=== PATIENT | female | born 1955 | race Caucasian/White ===

== ENCOUNTER 2019-05-31 20:37 | Emergency (ER) | payer OTHER, SELFPAY ==
[2019-05-31 20:48] VITALS: BP 157/111; PULSE 108; RESP 24; O2SAT 97; BMI 41.4
--- NOTE | 2019-05-31 20:57 | PC.NURSE ---
Discussed pt with Dr. Gaspar, he is aware of pt being in 10/10 pain, waiting for him to see pt. No orders at this time.
--- NOTE | 2019-05-31 21:05 | ED_ITS ---
HPI - Abdominal Pain General Chief Complaint: Abdominal Pain Stated Complaint: REALLY BAD HEMORRHOIDS BAD PAIN Time Seen by Provider: 05/31/19 20:44 Source: patient Mode of arrival: ambulatory History of Present Illness HPI narrative: 64-year-old female who is here for rectal pain. Patient has been seen in the past for hemorrhoids. She has an appointment scheduled next Monday with the surgery Clinic to have them evaluated. She states she has had rectal pain for the past 3 weeks. Is on a stool softener. States she is having diarrhea. No vomiting. No urinary symptoms. Related Data Home Medications Medication Instructions Recorded Confirmed magnesium hydroxide [Milk Of 30 ml PO HS #0 05/04/16 Magnesia Concentrated] Previous Rx's Medication Instructions Recorded aspirin 81 mg PO BID #90 05/20/16 hydroxyzine pamoate 25 mg PO Q4HP PRN #60 cap 05/20/16 oxycodone 5 mg PO Q4HP PRN #60 tab 05/20/16 nitroglycerin 1 inch TX BID PRN #30 gram 05/31/19 Allergies Allergy/AdvReac Type Severity Reaction Status Date / Time No Known Drug Allergies Allergy Verified 05/31/19 20:51 Review of Systems Constitutional Denies fever(s) Cardiovascular Denies chest pain and Denies dyspnea Respiratory Denies dyspnea Gastrointestinal Gastrointestinal: Denies abdominal pain, Denies melena, Denies hematochezia, Denies constipation, Denies cramping, Reports loose stools, Denies nausea and Denies vomiting Comments: Hemorrhoid pain Musculoskeletal Denies back pain and Denies arthralgias Integumentary/Breasts Denies lesions and Denies rash Hematologic/Lymphatic Denies easy bleeding and Denies easy bruising [facility] Medical History Patient denies medical problems (Acute) Social History Smoking Status: Never smoker Social History Smoking Status: Never smoker Exam Initial Vital Signs Initial Vital Signs: Vital Signs Pulse Rate 108 H 05/31/19 20:48 Respiratory Rate 24 05/31/19 20:48 Blood Pressure 157/111 H 05/31/19 20:48 Pulse Oximetry 97 05/31/19 20:48 Const General: cooperative, No comfortable (Comfortable), well developed and well groomed Orientation: alert and awake HENMT Head: normal to inspection and normocephalic Resp Effort & Inspection: normal respiratory effort GI Inspection: non-distended Palpation: No firm Other: Patient with multiple nonthrombosed external hemorrhoids. Difficult to do an internal exam secondary to the patient's extreme discomfort however no internal hemorrhoids felt. No gross blood. Skin Lesions: no lesions Rashes: no rashes Neuro General: alert and awake Cognition: normal cognition Speech: speech normal Extrem General: normal to inspection and capillary refill normal Course Orders Ordered: ED Orders 05/31/19 21:07 CT pelvis w con Stat 05/31/19 21:30 Basic Metabolic Panel Stat Complete Blood Count AUTO DIFF Stat Discontinued Medications Hydromorphone HCl (Dilaudid) 1 mg IV NOW ONE Stop: 05/31/19 21:08 Last Admin: 05/31/19 21:35 Dose: 1 mg Sodium Chloride (Normal Saline 0.9%) 1,000 mls @ 1,000 mls/hr IV BOLUS ONE Stop: 05/31/19 22:06 Last Infusion: 05/31/19 23:01 Dose: 0 mls/hr Admin: 05/31/19 21:35 Dose: 1,000 mls/hr Vital Signs - 8 hr 05/31/19 20:48 05/31/19 21:52 05/31/19 22:54 Pulse Rate 108 H 93 H 78 Respiratory Rate 24 18 Blood Pressure 157/111 H Blood Pressure [Left Arm] 124/66 132/62 Pulse Oximetry 97 98 98 MDM - Abdominal Pain Lab Data Attestation: I reviewed the patient's lab results. Result diagrams: 05/31/19 21:30 05/31/19 21:30 Lab Results 05/31/19 05/31/19 Range/Units 21:30 21:30 WBC 9.0 (4.5-11.0) X10^3/uL RBC 5.04 (4.0-5.2) X10^6/uL Hgb 16.2 H (12.0-16.0) g/dL Hct 46.1 H (36-46) % MCV 91.5 (80-100) fL MCH 32.1 (26-34) PG MCHC 35.1 (30-36) % RDW 12.7 (11.6-14.8) % Plt Count 179 (150-400) X10^3/uL Neut % (Auto) 59.4 (50-75) % Lymph % (Auto) 30.3 (25-40) % [place] % (Auto) 8.6 (3-14) % Eos % (Auto) 0.9 L (2-4) % Baso % (Auto) 0.8 (0-2) % Neut # (Auto) 5300 (1225-9781) /uL Lymph # (Auto) 2700 (3437-5831) /uL [place] # (Auto) 800 (0-900) /uL Eos # (Auto) 100 (0-450) /uL Baso # (Auto) 100 (0-100) /uL Sodium 143 (137-145) mmol/L Potassium 4.2 (3.4-5.1) mmol/L Chloride 105 (98-107) mmol/L Carbon Dioxide 29 (22-32) mmol/L BUN 17 (7-17) mg/dL Creatinine 0.80 (0.52-1.04) mg/dL Estimated GFR > 60.0 (>60) mL/min BUN/Creatinine Ratio 21.3 (6-22) Glucose 94 (80-110) mg/dL Calcium 10.7 H (8.4-10.2) mg/dL Imaging Data CT pelvis: Radiologist's impression: No acute pathology Read by [facility] MDM Narrative Medical decision making narrative: Patient does have multiple external h emorrhoids however none of them were thrombosed. CT scan of the pelvis shows no deep pathology. This was ordered given the severity of the symptoms she was having. She is given pain medication was seems to improve her symptoms quite a bit. She has a follow-up with General Surgery the middle next week. I do not feel the need for a emergent surgical consultation from the emergency department. Will send home with nitroglycerin ointment. Discussed with the patient this could potentially cause her headache we also discussed that this could potentially cause a decrease in blood pressure. Will continue to have her follow up next week. She was given return precautions. She expressed unders tanding and agreement plan. Discharge Plan Departure Patient Disposition: Home Clinical Impression: Rectal pain Hemorrhoids Qualifiers: Hemorrhoid type: unspecified Qualified Code(s): K64.9 - Unspecified hemorrhoids Discharge Date/Time: 05/31/19 23:00 Interventions: ED Discharge Assessment Last Done: 05/31/19 23:00 Instructions: Hemorrhoids (Alternative Therapy), Hemorrhoids Activity Restrictions/Additional Instructions: Keep all of your scheduled medical appointments. Use the cream like we discussed. Return to the emergency department for any new or worsening symptoms Prescriptions: New nitroglycerin 0.4 % (w/w) ointment 1 inch TX BID PRN (Reason: rectal discomfort) Qty: 30 RF: 0 No Action magnesium hydroxide [Milk Of Magnesia Concentrated] 2,400 MG/10 ML suspension 30 ml PO HS Qty: 0 RF: 0 aspirin 81 MG tablet,delayed release (DR/EC) 81 mg PO BID Qty: 90 RF: 1 oxycodone 5 MG tablet 5 mg PO Q4HP PRNQty: 60 RF: 0 hydroxyzine pamoate 25 MG capsule 25 mg PO Q4HP PRNQty: 60 RF: 1 Referrals: Mery Sanchez MD [Primary Care Provider] -
--- NOTE | 2019-05-31 21:07 | DI.CT.S_ITS ---
PROCEDURE: CT PELVIS W CON INDICATIONS: Perirectal pain eval for abscess TECHNIQUE: After the administration of oral contrast and intravenous contrast, 5 mm thick sections acquired from the iliac crests to the symphysis. 5 mm thick coronal and sagittal reformats were acquired. For radiation dose reduction, the following was used: automated exposure control, adjustment of mA and/or kV according to patient size. COMPARISON: None. FINDINGS: Image quality: Diagnostic. Peritoneum and bowel: Thickening of the wall of the anus is identified with mild perianal edema. However, there is no drainable fluid collection within the adjacent soft tissues. Fluid is seen within the colon. Postoperative changes of the sigmoid colon suggest previous partial resection. Image small bowel loops are nondilated. There is a small fat containing periumbilical hernia and an adjacent right paracentral ventral hernia that contains mesenteric fat. No free fluid or loculated fluid collection is seen within the pelvis. No free air. Genitourinary: Bladder wall thickness is normal. The uterus and ovaries are not enlarged or adequately evaluated on CT. Nodes and vessels: No iliac, pelvic, or inguinal adenopathy. Iliac vessels demonstrate normal size and enhancement. Bones: No suspicious bony lesions. Degenerative changes of the lower lumbar spine, bilateral hips, and sacroiliac joints are present. IMPRESSION: 1. Mild anal wall thickening with subtle surrounding subcutaneous edema is likely related to mild inflammation. There is no perianal abscess. 2. Postoperative changes of the sigmoid. The bowel loops are nondilated. For Note: The preliminary [facility] report and the final report are concordant. Dictated by: Akbar Ellison M.D. on 06/01/2019 at 6:46 Approved by: Akbar Ellison M.D. on 06/01/2019 at 6:50
--- NOTE | 2019-05-31 21:16 | PC.NURSE ---
Pt given a bedside commode with a hat, and wipes. Pt transfered self to commode, steady transfer.
[2019-05-31] MEDS: SODIUM CHLORIDE 0.9% 1,000 ML 1000 ML IV (21:35)
[2019-05-31] MEDS: HYDROMORPHONE 1 MG INJ IV (21:35)
[2019-05-31 21:46] LABS: Add Manual Diff / Slide Review NO; Basophils Absolute Auto 100 /uL (0-100); Basophils Percent Auto 0.8 % (0-2); Eosinophils Absolute Auto 100 /uL (0-450); Eosinophils Percent Auto 0.9 % (2-4); Hematocrit 46.1 % (36-46); Hemoglobin 16.2 g/dL (12.0-16.0); Lymphocytes Absolute Auto 2700 /uL (1100-4500); Lymphocytes Percent Auto 30.3 % (25-40); Mean Corpuscular HGB Conc 35.1 % (30-36); Mean Corpuscular Hemoglobin 32.1 PG (26-34); Mean Corpuscular Volume 91.5 fL (80-100); Monocytes Absolute Auto 800 /uL (0-900); Monocytes Percent Auto 8.6 % (3-14); Neutrophils Absolute Auto 5300 /uL (1500-7000); Neutrophils Percent Auto 59.4 % (50-75); Platelet Count 179 X10^3/uL (150-400); Red Blood Cell Count 5.04 X10^6/uL (4.0-5.2); Red Cell Distribution Width 12.7 % (11.6-14.8)
[2019-05-31 21:52] VITALS: BP 124/66; PULSE 93; O2SAT 98
[2019-05-31 21:56] LABS: BUN Creatinine Ratio 21.3 (6-22); Blood Urea Nitrogen 17 mg/dL (7-17); Calcium 10.7 mg/dL (8.4-10.2); Carbon Dioxide 29 mmol/L (22-32); Chloride 105 mmol/L (98-107); Estimated Glomerular Filt Rate > 60.0 mL/min (>60); Glucose 94 mg/dL (80-110); HEMOLYSIS 44 (0-50); Potassium 4.2 mmol/L (3.4-5.1); Sodium 143 mmol/L (137-145)
[2019-05-31 22:54] VITALS: BP 132/62; PULSE 78; RESP 18; O2SAT 98
== END 2019-05-31 23:00 | disposition home or self-care (01) ==
PROVIDERS: Emergency Provider Emergency Medicine; PCP Internal Medicine
DX: K64.9 Unspecified hemorrhoids (principal); K62.89 Other specified diseases of anus and rectum
CPT/HCPCS: 36591; 72193; 80048; 85025; 96361; 96374; 99283; 99285; J1170

== ENCOUNTER 2019-06-06 13:58 | Day surgery (SDC) | payer OTHER, SELFPAY ==
[2019-06-06] VITALS (12 sets, daily range): BP systolic 114–163; BP diastolic 57–85; PULSE 72–109; RESP 11–34; TEMP 36.2–36.8; O2SAT 95–100; BMI 40.7
--- NOTE | 2019-06-06 | PATH_ITS ---
[facility] Accession Number: [id number] . 01 Material submitted: . hemorrhoids - HEMORRHOIDS . 02 Diagnosis: Hemorrhoids, Excision: Benign hemorrhoid tissue. No evidence of neoplasm. [facility]/06/11/2019 . 02 Electronically signed: . Cale Valdes MD, PhD, Pathologist NPI- [id number] . 01 Gross description: . HEMORRHOIDS: Received in formalin are 3 fragments of lucero rubbery tissue measuring 3.5 x 1.3 x 0.8 cm in aggregate. Tissue is inked. Specimen is sectioned and submitted in sales representative metals sections in 1 cassette. /CKI /CKI . 02 Pathologist provided ICD-10: K64.9 . 02 CPT . 249289 Performed at: 01 [facility] [address] [place] [address], [place], [place] [id number] MD Javier Pritchard MD Phone: [phone] Performed at: [address] [facility] [address] [place], [place] [id number] MD Xochitl Javed MD Phone: [phone]
[2019-06-06] MEDS: LACTATED RINGERS 1,000 ML 42 ML IV (14:51)
--- NOTE | 2019-06-06 15:11 | PM.PREOP ---
Pre-operative Note Interval Note History & Physical reviewed/Exam performed by Physician: Yes Changes to H&P: No
--- NOTE | 2019-06-06 15:48 | SUR.OPER ---
Lithotomy on padded OR bed, head on pillow, arms secured on padded arm boards at <90 degrees abduction. Legs secured in padded yellow fins stirrups.
[2019-06-06] MEDS: BUPIVACAINE 0.5% W/ EPI (PF) VIAL 30 ML INJ (15:56)
[2019-06-06] MEDS: DIBUCAINE 1% OINT 28 GM 1 APPLIC TOP (15:56)
[2019-06-06] MEDS: fentaNYL 100 MCG/2 ML INJ 50 MCG IV ×2 (16:21→16:27)
--- NOTE | 2019-06-06 16:27 | PM.OP.1 ---
Operative Date/Time/Diagnoses Date of procedure: 06/06/19 Time of procedure: 16:27 Pre-op diagnosis: anal pain Post-op diagnosis: other (hemorrhoids) Procedure & Clinicians Procedure: hemorrhoidectomy x 2 Same procedure as scheduled: Yes Indications: 64-year-old female was evaluated in the office yesterday for perianal pain. She has history of hemorrhoids and examination in the office was significantly limited secondary to pain. In the office she appeared to have the some external component of the hemorrhoid disease that was exquisitely tender although not thrombosed. She is brought to the operating room with plan for examination under anesthesia and possible hemorrhoidectomy. Surgeon: Omar Morris Click Yes if Unassisted: Yes Anesthesia Type: General and Local Operative Notes Findings: Prolapsing inflamed and friable right posterior and anterior hemorrhoids. Specimen(s): other (right posterior and lateral) Estimated Blood Loss (mL): 10 Procedure in detail: The patient was brought to the operating room and placed supine on the table. Bilateral lower extremity compression devices were applied. General anesthesia was induced and she was intubated with an LMA. She was then placed in the lithotomy position. She was then preped and draped in the sterile fashion. Time-out was performed to ensure the correct patient procedure necessary equipment within the operating room. A perianal block was created by instilling 20 mL of 0.5% bupivacaine the intersphincteric groove. I performed a digital rectal exam which was negative for masses. A Hill-Benedict retractor was placed an circumferential inspection of the anal canal was made. There were no masses, no anal fissure no evidence of abscess or fistula. There were prolapsing hemorrhoids with external and internal components in right posterior and right anterior position, they were significantly inflamed and friable. The hemorrhoids were elevated off of the internal sphincter and then excised using electro cautery. The mucosa was then closed in a running fashion with 3 0 Vicryl suture. Both specimens were passed off the field labeled the specimen as hemorrhoid. Hemostasis was checked. An Gelfoam was then placed. Patient tolerated the procedure well. The sponge and instrument counts any operation was correct. No patient was transferred to the postoperative care unit in stable condition Complications: none Post-operative Condition: stable Disposition: same day surgery
[2019-06-06] MEDS: OXYCODONE/ACETAMINOPHEN 5/325 TABLET 1 TAB PO ×2 (16:38→17:14)
--- NOTE | 2019-06-06 17:01 | SUR.PHASEII ---
Bedside report given to SMITA Ventura. Transferred care of pt to SMITA Ventura at this time.
--- NOTE | 2019-06-06 17:16 | SUR.PHASEII ---
Medicated with 2nd percocet per pt request.
--- NOTE | 2019-06-06 17:23 | SUR.PHASEII ---
report to SMITA Massey
== END 2019-06-06 17:55 | disposition home or self-care (01) ==
PROVIDERS: PCP Internal Medicine; Visit Provider Surgery
PROC: (CPT 46260; principal; 2019-06-06 15:30)
DX: K64.4 Residual hemorrhoidal skin tags (principal)
CPT/HCPCS: 46260; 88304; J1100; J2405; J2704; J3010

== ENCOUNTER 2020-07-19 11:12 | Emergency (ER) | payer OTHER, SELFPAY ==
[2020-07-19] VITALS (10 sets, daily range): BP systolic 134–167; BP diastolic 63–80; PULSE 67–119; RESP 12–22; TEMP 35.8; O2SAT 97–100
--- NOTE | 2020-07-19 11:25 | DI.RAD.S_ITS ---
PROCEDURE: XR CHEST 1V INDICATIONS: chest pain TECHNIQUE: One view of the chest was acquired. COMPARISON: None. FINDINGS: Surgical changes and devices: None. Lungs and pleura: Lungs are clear. No pleural effusions or pneumothorax. Mediastinum: Mediastinal contours appear normal. Heart size is enlarged. Bones and chest wall: No suspicious bony lesions. Overlying soft tissues appear unremarkable. IMPRESSION: Cardiomegaly. No acute cardiopulmonary findings. Dictated by: Ariadna Arriaza M.D. on 07/19/2020 at 12:17 Approved by: Ariadna Arriaza M.D. on 07/19/2020 at 12:18
[2020-07-19 11:42] LABS: Add Manual Diff / Slide Review NO; Basophils Absolute Auto 100 /uL (0-100); Basophils Percent Auto 1.3 % (0-2); Eosinophils Absolute Auto 100 /uL (0-450); Eosinophils Percent Auto 1.6 % (2-4); Hematocrit 50.2 % (36-46); Hemoglobin 16.8 g/dL (12.0-16.0); Lymphocytes Absolute Auto 2300 /uL (1100-4500); Lymphocytes Percent Auto 41.6 % (25-40); Mean Corpuscular HGB Conc 33.4 % (30-36); Mean Corpuscular Hemoglobin 31.7 PG (26-34); Mean Corpuscular Volume 94.9 fL (80-100); Monocytes Absolute Auto 300 /uL (0-900); Monocytes Percent Auto 5.7 % (3-14); Neutrophils Absolute Auto 2800 /uL (1500-7000); Neutrophils Percent Auto 49.8 % (50-75); Platelet Count 153 X10^3/uL (150-400); Red Blood Cell Count 5.29 X10^6/uL (4.0-5.2); Red Cell Distribution Width 12.7 % (11.6-14.8); White Blood Cell Count 5.7 X10^3/uL (4.5-11.0)
--- NOTE | 2020-07-19 11:42 | ED_ITS ---
HPI - Chest Pain <Dion AbenaRENUKA Ardon - Last Filed: 07/20/20 02:28> General Chief Complaint: Chest Pain Stated Complaint: BACK PAIN FOR PAST 3 DAYS Time Seen by Provider: 07/19/20 11:24 Source: patient Mode of arrival: Ambulatory Limitations: no limitations History of Present Illness HPI narrative: This is a 65-year-old female, nonsmoker, who has history of hyperlipidemia presents to ED with spouse with chief complain of nontraumatic left-sided upper thoracic pain radiating to left chest which started 4 days ago. Patient reports pain increases with movement and and changing in position and improved with using heating pad. Patient does not recall any heavy lifting or straining her upper body. Patient denies dyspnea, lightheadedness, palpitations, near syncope, cold sweats as associated symptoms. Patient reports pain as 6/10 and constant in sharp character. Patient denies weakness, numbness, or tingling in upper extremities. Patient denies fever or rashes on her back. She denies recent cough or cold symptoms. She denies calf swelling, history of blood clots, recent long travel, or hormone replacement therapy, recent surgery, or history of a back pain. Related Data Home Medications Medication Instructions Recorded Confirmed atorvastatin 20 mg PO DAILY 06/06/19 06/20/19 sumatriptan succinate mg PO PRN PRN 07/19/20 Previous Rx's Medication Instructions Recorded docusate sodium [Colace] 200 mg PO DAILY #90 cap 06/06/19 cyclobenzaprine 10 mg PO BID PRN #14 tab 07/19/20 lidocaine 2 patch TOP DAILY PRN #30 each 07/19/20 Allergies Allergy/AdvReac Type Severity Reaction Status Date / Time No Known Drug Allergies Allergy Verified 07/19/20 11:44 Review of Systems <Dion QamarRENUKA paige - Last Filed: 07/20/20 02:28> Review of Systems Narrative: General: Denies fever, chills, fatigue, malaise, sweats. HEENT: Denies sinus pain, ear pain, sore throat, difficulty swallowing, dizziness. Respiratory: Denies dyspnea, cough, wheezing, hemoptysis, sputum. Cardiovascular: CHP a Gastrointestinal: Denies nausea, vomiting, abdominal pain, diarrhea, constipation, melena. : Denies dysuria, frequency, incontinence, hematuria, urinary retention. Musculoskeletal: See HPI Skin: Denies rash, skin lesions, or other. Neurologic: Denies weakness, headache, numbness, change in speech, confusion, seizures, incoordination. Psychiatric: No concerning psychosocial issues. 12-point review of systems is negative except for those stated above. Patient History <RENUKA Ferris - Last Filed: 07/20/20 02:28> Medical History Anxiety (Acute) Colon cancer (Acute ~2006) Depression (Acute) Enlarged thyroid (Acute ~2007) Headache (Acute) HLD (hyperlipidemia) (Acute) HTN (hypertension) (Acute) SUZIE on CPAP (Acute) Osteoarthritis (Acute) Patient denies medical problems (Acute) Surgical History History of colonoscopy (Acute ~2017) History of ear surgery (Acute) History of hemorrhoidectomy (Acute) Hx of tonsillectomy (Acute) Social History household members: spouse Smoking Status: Never smoker Smoking Status: Never smoker alcohol intake frequency: 0-2 drinks per day Substance Use Type: does not use Exam <RENUKA Ferris - Last Filed: 07/20/20 02:28> Narrative Exam Narrative: GEN: Alert, oriented x 3, well appearing and nourished, and in no acute distress. Head: Normal cephalic, atraumatic. No scalp or temporal tenderness, palpable mass or rash. EYES: Pupils are equal, round, and reactive to light and accommodation. Extraocular muscles are intact bilaterally. There is no subconjunctival hemorrhage, exudate and sclera non-icteric. ENT: Hearing grossly intact. Airway patent. Neck: Trachea in midline. No JVD, non-tender without lymphadenopathy. No masses or thyroid megaly. Supple, non-tender and no meningeal signs. CARDIAC: Normal regular rate and rhythm without murmurs, gallops, or rubs. No chest wall tenderness. No peripheral edema, cyanosis or pallor. Capillary refill is less than 2 seconds. RESPIRATORY: Lungs are clear to auscultate bilaterally. No cough, wheezes, rales, or rhonchi. No stridor, respiratory distress, increase work of breathing, or accessary muscle used. ABD: Abdomen soft, nontender and non-distended. No guarding or rebound t enderness to palpate. Bowel sounds are normal in all 4 quadrants. There is no palpable masses or organomegaly. EXT: Full painless ROM of all extremities with no loss of sensation, strength, effusion or edema. SKIN: Warm, dry, normal color for patient. No erythema, lesions or rash over visible areas. NEUROLOGICAL: Alert and oriented to place, time and person. Sensation and motor function intact bilaterally. No facial droops, dysphasia. PSYCHIATRIC: Good judgement and reason, without hallucinations, abnormal affect or abnormal behaviors during the examination. Patient is not suicidal. Initial Vital Signs Initial Vital Signs: Vital Signs Temperature 96.5 F L 07/19/20 11:20 Pulse Rate 112 H 07/19/20 11:20 Respiratory Rate 20 07/19/20 11:20 Blood Pressure 167/80 H 07/19/20 11:20 Pulse Oximetry 98 07/19/20 11:20 Back/Spine/Pelvis Back: normal to inspection, No CVA tenderness, No ecchymosis, No erythema, No ma ss and No warmth Thoracic/Lumbar Spine: thoracic and lumbar spine normal to inspection, No surgical scar(s) present, thoraco-lumbar ROM normal, pain with thoraco-lumbar ROM, paraspinal tenderness (Left-sided), No thoracic spinal tenderness and No lumbar spinal tenderness <Roxie Pritchard DO - Last Filed: 07/25/20 08:41> Initial Vital Signs Initial Vital Signs: Vital Signs Temperature 96.5 F L 07/19/20 11:20 Pulse Rate 112 H 07/19/20 11:20 Respiratory Rate 20 07/19/20 11:20 Blood Pressure 167/80 H 07/19/20 11:20 Pulse Oximetry 98 07/19/20 11:20 Scores <RENUKA Ferris - Last Filed: 07/20/20 02:28> GCS [place] coma scale eye opening: Spontaneous [place] coma scale verbal response: Orientated [place] coma scale motor response: Obey commands [place] coma scale total score: 15 HEART Score Heart Score history: Slightly Suspicious Heart Score EKG: Non-Specific repolarization disturbance Heart Score Age: 45-64 years old Heart Score risk factors: 1-2 risk factors Heart Score troponin: < or = to normal limit Heart Score Total: 3 PERC Score Age greater than or equal to 50 years: Yes Heart rate greater than or equal to 100 bpm: Yes Room Air O2 Sat less than 95%: No Unilateral leg swelling: No Recent trauma or surgery: No Hemoptysis: No Prior PE or DVT: No Hormone Use: No Total PERC Score: 2 Wells' Criteria for PE Clinical signs and symptoms of DVT: No PE is #1 Dx or equally likely: No Heart rate > 100: Yes Immobilization at least 3 days or surg in previous 4 weeks: No History of PE or DVT: No Hemoptysis: No Malignancy w/Treatment within 6 months or palliative: No Wells' PE Score total: 1.5 Course <RENUKA Ferris - Last Filed: 07/20/20 02:28> Orders Ordered: Discontinued Medications Acetaminophen (Tylenol) 650 mg PO NOW ONE Stop: 07/19/20 11:50 Last Admin: 07/19/20 12:10 Dose: 650 mg Documented by: ALBARO Cyclobenzaprine HCl (Flexeril) 10 mg PO NOW ONE Stop: 07/19/20 11:50 Last Admin: 07/19/20 12:10 Dose: 10 mg Documented by: ALBARO Ibuprofen (Advil) 400 mg PO NOW ONE Stop: 07/19/20 11:50 Last Admin: 07/19/20 12:10 Dose: 400 mg Documented by: ALBARO Lidocaine (Lidoderm) 1 each TOP NOW ONE Stop: 07/19/20 11:50 Last Admin: 07/19/20 12:10 Dose: 1 each Documented by: ALBARO Vital Signs Vital signs: Vital Signs - 8 hr 07/19/20 11:20 07/19/20 11:23 07/19/20 11:24 Temperature 96.5 F L Pulse Rate 112 H 119 H 114 H Respiratory Rate 20 Blood Pressure 167/80 H 165/74 H Pulse Oximetry 98 97 99 07/19/20 11:30 Temperature Pulse Rate 92 H Respiratory Rate 22 Blood Pressure 167/78 H Pulse Oximetry 100 <Roxie Pritchard DO - Last Filed: 07/25/20 08:41> Orders Ordered: Discontinued Medications Acetaminophen (Tylenol) 650 mg PO NOW ONE Stop: 07/19/20 11:50 Last Admin: 07/19/20 12:10 Dose: 650 mg Documented by: ALBARO Cyclobenzaprine HCl (Flexeril) 10 mg PO NOW ONE Stop: 07/19/20 11:50 Last Admin: 07/19/20 12:10 Dose: 10 mg Documented by: ALBARO Ibuprofen (Advil) 400 mg PO NOW ONE Stop: 07/19/20 11:50 Last Admin: 07/19/20 12:10 Dose: 400 mg Documented by: ALBARO Lidocaine (Lidoderm) 1 each TOP NOW ONE Stop: 07/19/20 11:50 Last Admin: 07/19/20 12:10 Dose: 1 each Documented by: ALBARO Vital Signs Vital signs: Vital Signs - 8 hr 07/19/20 11:20 07/19/20 11:23 07/19/20 11:24 Temperature 96.5 F L Pulse Rate 112 H 119 H 114 H Respiratory Rate 20 Blood Pressure 167/80 H 165/74 H Pulse Oximetry 98 97 99 07/19/20 11:30 Temperature Pulse Rate 92 H Respiratory Rate 22 Blood Pressure 167/78 H Pulse Oximetry 100 MDM - Chest Pain <Dion RENUKA Lackey - Last Filed: 07/20/20 02:28> Differential Diagnosis Differential diagnosis: Likely pneumothorax, atypical chest pain, costochondritis and other (Thoracic back pain, pulmonary embolism, shingles) Medical Records Data Attestation: I reviewed the patient's medical records. Lab Data Attestation: I reviewed the patient's lab results. Result diagrams: 07/19/20 11:30 07/19/20 11:30 Labs: Lab Results 07/19/20 07/19/20 07/19/20 Range/Units 11:30 11:30 11:30 WBC 5.7 (4.5-11.0) X10^3/uL RBC 5.29 H (4.0-5.2) X10^6/uL Hgb 16.8 H (12.0-16.0) g/dL Hct 50.2 H (36-46) % MCV 94.9 (80-100) fL MCH 31.7 (26-34) PG MCHC 33.4 (30-36) % RDW 12.7 (11.6-14.8) % Plt Count 153 (150-400) X10^3/uL Neut % (Auto) 49.8 L (50-75) % Lymph % (Auto) 41.6 H (25-40) % [place] % (Auto) 5.7 (3-14) % Eos % (Auto) 1.6 L (2-4) % Baso % (Auto) 1.3 (0-2) % Neut # (Auto) 2800 (1034-1750) /uL Lymph # (Auto) 2300 (2799-0305) /uL [place] # (Auto) 300 (0-900) /uL Eos # (Auto) 100 (0-450) /uL Baso # (Auto) 100 (0-100) /uL PT 11.9 (10.1-12.7) SECONDS INR 1.0 (0.9-1.3) APTT 29 (26.4-36.2) SECONDS D-Dimer (<230) ng/mL Sodium 140 (137-145) mmol/L Potassium 4.5 (3.4-5.1) mmol/L Chloride 103 (98-107) mmol/L Carbon Dioxide 29 (22-32) mmol/L BUN 16 (7-17) mg/dL Creatinine 0.81 (0.52-1.04) mg/dL Estimated GFR > 60.0 (>60) mL/min BUN/Creatinine Ratio 19.8 (6-22) Glucose 110 (80-110) mg/dL Calcium 10.2 (8.4-10.2) mg/dL Total Bilirubin 0.9 (0.2-1.3) mg/dL AST 52 H (14-36) IU/L ALT 37 H (<35) IU/L Alkaline Phosphatase 80 (38-126) U/L Total Creatine Kinase 56 (30-135) U/L CK-MB (CK-2) TNP CK-MB (CK-2) Rel Index TNP Troponin I < 0.012 (0.01-0.034) ng/mL NT-Pro-B Natriuret Pep (<125) pg/mL Total Protein 8.0 (6.3-8.2) g/dL Albumin 4.7 (3.5-5.0) g/dL Globulin 3.3 (1.7-4.1) g/dL Albumin/Globulin Ratio 1.4 (1.0-2.8) Lipase 142 (23-300) U/L 07/19/20 07/19/20 Range/Units 11:30 11:30 WBC (4.5-11.0) X10^3/uL RBC (4.0-5.2) X10^6/uL Hgb (12.0-16.0) g/dL Hct (36-46) % MCV (80-100) fL MCH (26-34) PG MCHC (30-36) % RDW (11.6-14.8) % Plt Count (150-400) X10^3/uL Neut % (Auto) (50-75) % Lymph % (Auto) (25-40) % [place] % (Auto) (3-14) % Eos % (Auto) (2-4) % Baso % (Auto) (0-2) % Neut # (Auto) (4263-1097) /uL Lymph # (Auto) (8549-9936) /uL [place] # (Auto) (0-900) /uL Eos # (Auto) (0-450) /uL Baso # (Auto) (0-100) /uL PT (10.1-12.7) SECONDS INR (0.9-1.3) APTT (26.4-36.2) SECONDS D-Dimer 312 H (<230) ng/mL Sodium (137-145) mmol/L Potassium (3.4-5.1) mmol/L Chloride (98-107) mmol/L Carbon Dioxide (22-32) mmol/L BUN (7-17) mg/dL Creatinine (0.52-1.04) mg/dL Estimated GFR (>60) mL/min BUN/Creatinine Ratio (6-22) Glucose (80-110) mg/dL Calcium (8.4-10.2) mg/dL Total Bilirubin (0.2-1.3) mg/dL AST (14-36) IU/L ALT (<35) IU/L Alkaline Phosphatase (38-126) U/L Total Creatine Kinase (30-135) U/L CK-MB (CK-2) CK-MB (CK-2) Rel Index Troponin I (0.01-0.034) ng/mL NT-Pro-B Natriuret Pep 86 (<125) pg/mL Total Protein (6.3-8.2) g/dL Albumin (3.5-5.0) g/dL Globulin (1.7-4.1) g/dL Albumin/Globulin Ratio (1.0-2.8) Lipase (23-300) U/L ECG Data Attestation: I personally reviewed and interpreted this ECG as follows: Prior ECG tracings: available for review Interpretation: Sinus rhythm rate at 88. Left dominant axis. Incomplete right bundle branch block [place] interval 140, QRS duration 104, QT/QTC 376/454 Left anterior fascicular block No acute ST changes. Similar ECG tracing from previous EKG on 05/03/16 [facility] Narrative Medical decision making narrative: This is a 65-year-old female who presents to ED with left-sided thoracic pain radiating to left chest for last 3 days. Patient denies constitutional symptoms, rash on her back. Patient denies trauma, fall, lifting heavy objects. Patient denies other cardiac related symptoms and reports pain increases with movement. EKG was sinus rhythm rate at 88 and in incomplete right bundle branch block which is similar ECG tracing from previous EKG in 2016. Cardiac enzymes were negative. No repeat cardiac e nzymes done given patient's symptoms has lasted for last 3 days. Upon arrival to ED patient had tachycardia with slightly elevated blood pressure. D-dimer was 312 which is normal for her age and CT test for pulmonary embolism was deferred. Chemistry test was unremarkable except mildly elevated AST and ALT of 52 in 37. Normal lipase. Chest x-ray showed cardiomegaly without pneumothorax, pneumonia, or pleural effusion. ProBNP was added and it was a normal finding. Considered shingles but physical exam is not consistent with this. Patient's heart score was 3. Wells criteria for PE score was 2. It is likely patient has pain is musculoskeletal in etiology. Patient was medicated with lidocaine patch, Flexeril, and ibuprofen which improved patient's discomfort. Patient discharged to home with same medications. Strict return precautions were discussed with patient and she verbalized understanding in agreement with treatment plan. Past patient's vital signs has improved with decreased blood pressure and heart rate in 70s to 80s with O2 sat in 98% in room air before discharged to home. <Roxie Pritchard, DO - Last Filed: 07/25/20 08:41> Lab Data Labs: Lab Results 07/19/20 07/19/20 07/19/20 Range/Units 11:30 11:30 11:30 WBC 5.7 (4.5-11.0) X10^3/uL RBC 5.29 H (4.0-5.2) X10^6/uL Hgb 16.8 H (12.0-16.0) g/dL Hct 50.2 H (36-46) % MCV 94.9 (80-100) fL MCH 31.7 (26-34) PG MCHC 33.4 (30-36) % RDW 12.7 (11.6-14.8) % Plt Count 153 (150-400) X10^3/uL Neut % (Auto) 49.8 L (50-75) % Lymph % (Auto) 41.6 H (25-40) % [place] % (Auto) 5.7 (3-14) % Eos % (Auto) 1.6 L (2-4) % Baso % (Auto) 1.3 (0-2) % Neut # (Auto) 2800 (5625-2430) /uL Lymph # (Auto) 2300 (2230-4150) /uL [place] # (Auto) 300 (0-900) /uL Eos # (Auto) 100 (0-450) /uL Baso # (Auto) 100 (0-100) /uL PT 11.9 (10.1-12.7) SECONDS INR 1.0 (0.9-1.3) APTT 29 (26.4-36.2) SECONDS D-Dimer (<230) ng/mL Sodium 140 (137-145) mmol/L Potassium 4.5 (3.4-5.1) mmol/L Chloride 103 (98-107) mmol/L Carbon Dioxide 29 (22-32) mmol/L BUN 16 (7-17) mg/dL Creatinine 0.81 (0.52-1.04) mg/dL Estimated GFR > 60.0 (>60) mL/min BUN/Creatinine Ratio 19.8 (6-22) Glucose 110 (80-110) mg/dL Calcium 10.2 (8.4-10.2) mg/dL Total Bilirubin 0.9 (0.2-1.3) mg/dL AST 52 H (14-36) IU/L ALT 37 H (<35) IU/L Alkaline Phosphatase 80 (38-126) U/L Total Creatine Kinase 56 (30-135) U/L CK-MB (CK-2) TNP CK-MB (CK-2) Rel Index TNP Troponin I < 0.012 (0.01-0.034) ng/mL NT-Pro-B Natriuret Pep (<125) pg/mL Total Protein 8.0 (6.3-8.2) g/dL Albumin 4.7 (3.5-5.0) g/dL Globulin 3.3 (1.7-4.1) g/dL Albumin/Globulin Ratio 1.4 (1.0-2.8) Lipase 142 (23-300) U/L 07/19/20 07/19/20 Range/Units 11:30 11:30 WBC (4.5-11.0) X10^3/uL RBC (4.0-5.2) X10^6/uL Hgb (12.0-16.0) g/dL Hct (36-46) % MCV (80-100) fL MCH (26-34) PG MCHC (30-36) % RDW (11.6-14.8) % Plt Count (150-400) X10^3/uL Neut % (Auto) (50-75) % Lymph % (Auto) (25-40) % [place] % (Auto) (3-14) % Eos % (Auto) (2-4) % Baso % (Auto) (0-2) % Neut # (Auto) (5280-4635) /uL Lymph # (Auto) (8118-8170) /uL [place] # (Auto) (0-900) /uL Eos # (Auto) (0-450) /uL Baso # (Auto) (0-100) /uL PT (10.1-12.7) SECONDS INR (0.9-1.3) APTT (26.4-36.2) SECONDS D-Dimer 312 H (<230) ng/mL Sodium (137-145) mmol/L Potassium (3.4-5.1) mmol/L Chloride (98-107) mmol/L Carbon Dioxide (22-32) mmol/L BUN (7-17) mg/dL Creatinine (0.52-1.04) mg/dL Estimated GFR (>60) mL/min BUN/Creatinine Ratio (6-22) Glucose (80-110) mg/dL Calcium (8.4-10.2) mg/dL Total Bilirubin (0.2-1.3) mg/dL AST (14-36) IU/L ALT (<35) IU/L Alkaline Phosphatase (38-126) U/L Total Creatine Kinase (30-135) U/L CK-MB (CK-2) CK-MB (CK-2) Rel Index Troponin I (0.01-0.034) ng/mL NT-Pro-B Natriuret Pep 86 (<125) pg/mL Total Protein (6.3-8.2) g/dL Albumin (3.5-5.0) g/dL Globulin (1.7-4.1) g/dL Albumin/Globulin Ratio (1.0-2.8) Lipase (23-300) U/L Discharge Plan Departure Patient Disposition: Home Clinical Impression: Acute left-sided thoracic back pain, Atypical chest pain Discharge Date/Time: 07/19/20 14:18 Instructions: DI for Atypical Chest Pain, DI for Thoracic Back Pain Activity Restrictions/Additional Instructions: You have been diagnosed with [left-sided thoracic pain radiating to chest. Labs are unremarkable. Cardiac enzymes, D-dimer, CBC, BNP are assuring. Liver Function Test is mildly elevated with the AST of 52, ALT of 37. Normal lipase. EKG without acute ST changes, no acute cardiopulmonary findings on chest x- ray.]. What to do: *Take your medications as directed. You can take [id number] Tylenol and or Motrin as needed for discomfort. Tylenol 650-1000 mg up to 3 to 4 times a da y as needed for discomfort. Ibuprofen 400-600 mg up to 3 to 4 times a day as needed for pain with food. You can use muscle relaxant cyclobenzaprine as needed. This can cause drowsiness so please take precautions not driving, drinking alcohol, or operating heavy equipments. Lidocaine patch on affected site with pain which stays on for 12 hours and off for 12 hours. These to medication have been transmitted to [facility] in [place]. *Follow up with your primary care provider in 2-3 days, call for an appointment. Let them know you were seen in the ED and that [facility] *Return to ED if you have any new, worsening, or concerning symptoms, such as [worsening pain, breathing difficulty, unable to tolerate fluids, fever, rash on her back, fainting like episode, or any acute concerns]. Prescriptions: New cyclobenzaprine 10 mg tablet 10 mg PO BID PRN (Reason: muscle spasm) Qty: 14 RF: 0 lidocaine 5 % adhesive patch,medicated 2 patch TOP DAILY PRN (Reason: Pain) Qty: 30 RF: 0 No Action atorvastatin 20 mg tablet 20 mg PO DAILY RF: 0 docusate sodium [Colace] 100 mg capsule 200 mg PO DAILY Qty: 90 RF: 0 sumatriptan succinate 100 mg tablet PO PRN PRN (Reason: Headache) RF: 0 Referrals: Bety Blevins [Primary Care Provider] -
[2020-07-19 11:48] LABS: Prothrombin Time 11.9 SECONDS (10.1-12.7)
[2020-07-19 11:51] LABS: PTT Partial Thromboplastin Tim 29 SECONDS (26.4-36.2)
[2020-07-19 12:00] LABS: Alanine Aminotransferase 37 IU/L (<35); Albumin 4.7 g/dL (3.5-5.0); Albumin Globulin Ratio 1.4 (1.0-2.8); Alkaline Phosphatase 80 U/L (38-126); Aspartate Aminotransferase 52 IU/L (14-36); BUN Creatinine Ratio 19.8 (6-22); Bilirubin Total 0.9 mg/dL (0.2-1.3); Blood Urea Nitrogen 16 mg/dL (7-17); Calcium 10.2 mg/dL (8.4-10.2); Carbon Dioxide 29 mmol/L (22-32); Chloride 103 mmol/L (98-107); Creatine Kinase 56 U/L (30-135); Estimated Glomerular Filt Rate > 60.0 mL/min (>60); Globulin 3.3 g/dL (1.7-4.1); Glucose 110 mg/dL (80-110); Lipase 142 U/L (23-300); Potassium 4.5 mmol/L (3.4-5.1); Sodium 140 mmol/L (137-145)
[2020-07-19 12:01] LABS: HEMOLYSIS 81 (0-50)
[2020-07-19 12:07] LABS: D Dimer 312 ng/mL (<230)
[2020-07-19] MEDS: ACETAMINOPHEN 325 MG TABLET 650 MG PO (12:10)
[2020-07-19] MEDS: CYCLOBENZAPRINE 10 MG TABLET PO (12:10)
[2020-07-19] MEDS: IBUPROFEN 400 MG TABLET PO (12:10)
[2020-07-19] MEDS: LIDOCAINE PATCH 1 EACH ADH..PATCH TOP (12:10)
[2020-07-19 12:12] LABS: Troponin I < 0.012 ng/mL (0.01-0.034)
[2020-07-19 13:04] LABS: NT-proBNP (BNP-Adult 18+) 86 pg/mL (<125)
== END 2020-07-19 14:18 | disposition home or self-care (01) ==
PROVIDERS: Emergency Medicine; Emergency Provider Nurse Practitioner Family; PCP Internal Medicine
DX: M54.6 Pain in thoracic spine (principal); R07.89 Other chest pain
CPT/HCPCS: 71045; 80053; 82550; 83690; 83880; 84484; 85025; 85379; 85610; 85730; 93005; 99283; 99284

== ENCOUNTER 2022-02-19 10:31 | Emergency (ER) | payer MEDICARE, OTHER, SELFPAY ==
[2022-02-19] VITALS (7 sets, daily range): BP systolic 145–159; BP diastolic 68–123; PULSE 97–104; RESP 16–20; TEMP 36.6; O2SAT 97–100; BMI 42.5
--- NOTE | 2022-02-19 10:40 | DI.RAD.S_ITS ---
PROCEDURE: XR CHEST 2V INDICATIONS: cough and congestion TECHNIQUE: 2 views of the chest were acquired. COMPARISON: [facility], , XR CHEST 1V, 07/19/2020, 11:27. FINDINGS: Surgical changes and devices: None. Lungs and pleura: Lungs are clear. No pleural effusions or pneumothorax. Mediastinum: Mediastinal contours are normal. Heart size is normal. Bones and chest wall: No suspicious bony abnormalities. Soft tissues appear unremarkable. IMPRESSION: No acute process. Dictated by: Mary Ellen San M.D. on 02/19/2022 at 11:01 Approved by: Mary Ellen San M.D. on 02/19/2022 at 11:01
[2022-02-19 11:21] LABS: COVID19 -Nasal RAPID Negative (Negative)
--- NOTE | 2022-02-19 12:29 | ED.GENADULT ---
HPI - General Adult General Chief complaint: Upper Respiratory Symptoms Stated complaint: cough Time Seen by Provider: 02/19/22 12:16 Source: patient Mode of arrival: Ambulatory History of Present Illness HPI narrative: 67-year-old female who is here for evaluation of couple days of a cough and sinus congestion. No fevers. Does have somewhat of a sore throat. Has not tried that for the symptoms prior to arrival. Related Data Home Medications Medication Instructions Recorded Confirmed atorvastatin 20 mg tablet 20 mg PO DAILY 06/06/19 06/20/19 sumatriptan succinate 100 mg tablet mg PO PRN PRN 07/19/20 Previous Rx's Medication Instructions Recorded docusate sodium 100 mg capsule 200 mg PO DAILY #90 cap 06/06/19 (Colace) cyclobenzaprine 10 mg tablet 10 mg PO BID PRN #14 tab 07/19/20 lidocaine 5 % topical patch 2 patch TOP DAILY PRN #30 each 07/19/20 Allergies Allergy/AdvReac Type Severity Reaction Status Date / Time No Known Drug Allergies Allergy Verified 02/19/22 10:37 Review of Systems Constitutional Constitutional: Reports system reviewed and no additional complaints, except as documented ENT Ears, Nose, Mouth, and Throat: Reports system reviewed and no additional complaints, except as documented Respiratory Respiratory: Reports system reviewed and no additional complaints, except as documented Integumentary/Breasts Skin/Breast: Reports system reviewed and no additional complaints, except as documented Hematologic/Lymphatic Hematologic/Lymphatic: Reports system reviewed and no additional complaints, except as documented Patient History Medical History Anxiety Colon cancer (~2006) Depression Enlarged thyroid (~2007) Headache HLD (hyperlipidemia) HTN (hypertension) SUZIE on CPAP Osteoarthritis Patient denies medical problems Surgical History History of colonoscopy (~2016) History of ear surgery History of hemorrhoidectomy Hx of tonsillectomy Social History household members: spouse Smoking Status: Never smoker Smoking Status: Never smoker alcohol intake frequency: holidays/special occasions only Substance Use Type: does not use Exam Initial Vital Signs Initial Vital Signs: Vital Signs Temperature 97.9 F 02/19/22 10:37 Pulse Rate 104 H 02/19/22 10:37 Respiratory Rate 16 02/19/22 10:37 Blood Pressure 145/75 H 02/19/22 10:37 Pulse Oximetry 97 02/19/22 10:37 Const General: cooperative and healthy appearing [facility] Head: normal to inspection and normocephalic Resp Effort & Inspection: normal respiratory effort Skin General: no rashes or lesions noted Neuro General: patient alert, patient awake and moves all extremities Extrem General: normal to inspection and capillary refill normal Course Orders Ordered: ED Orders 02/19/22 10:40 Chest [XR chest 2V] Stat 02/19/22 10:41 COVID19 -Nasal RAPID/Pre-Proc Stat Vital Signs Vital signs: Vital Signs - 8 hr 02/19/22 12:15 02/19/22 12:16 02/19/22 12:17 Pulse Rate 104 H 103 H Respiratory Rate Blood Pressure 159/123 H 147/75 H Pulse Oximetry 99 100 100 02/19/22 12:30 02/19/22 12:51 02/19/22 12:53 Pulse Rate 97 H 103 H 104 H Respiratory Rate 20 Blood Pressure 148/73 H 148/68 H 148/68 H Pulse Oximetry 99 98 Medical Decision Making Lab Data Labs: Lab Results 02/19/22 Range/Units 10:41 SARS-CoV-2 (PCR) Negative (Negative) Imaging Data Chest x-ray: Radiologist's Impression: [address] [address] XRay Report Signed Patient: Pily Stewart MR#: [id number] : 1955 Acct:[id number] Age/Sex: 67 / F Date of Service: 02/19/22 Loc: ED Accession Number: [id number] ?? Procedure: XR chest 2V Ordering Provider: Jerrod Gaspar D.O. PROCEDURE:? XR CHEST 2V ? INDICATIONS:? cough and congestion ? TECHNIQUE:? 2 views of the chest were acquired.? ? COMPARISON:? [facility], [place], XR CHEST 1V, 07/19/2020, 11:27. ? FINDINGS:? ? Surgical changes and devices:? None.? ? Lungs and pleura:? Lungs are clear.? No pleural effusions or pneumothorax.? ? Mediastinum:? Mediastinal contours are normal.? Heart size is normal.? ? Bones and chest wall:? No suspicious bony abnormalities.? Soft tissues appear unremarkable.? ? IMPRESSION:? No acute process. ? ? Dictated by: Mary Ellen San M.D. on 02/19/2022 at 11:01 ? ? Approved by: Mary Ellen San M.D. on 02/19/2022 at 11:01?? MDM Narrative Medical decision making narrative: Well-appearing. Vital signs unremarkable. Chest x-ray is unremarkable. COVID is negative. No indication for antibiotics. Discussed [id number] treatments the patient tried home. She was given return precautions. She expressed understanding and agreement. Discharge Plan Departure Patient Disposition: Home Clinical Impression: Upper respiratory infection Instructions: DI for Viral Upper Respiratory Infection -- Adult Activity Restrictions/Additional Instructions: I do recommend that you take an [id number] antihistamine or decongestant. Is may help your symptoms. Contact your primary doctor for follow-up. Continue to take all of your medications as directed. Return to the emergency department for any new or worsening symptoms. Prescriptions: No Action atorvastatin 20 mg tablet 20 mg PO DAILY 0RF docusate sodium [Colace] 100 mg capsule 200 mg PO DAILY Qty: 90 0RF sumatriptan succinate 100 mg tablet PO PRN PRN (Reason: Headache) 0RF cyclobenzaprine 10 mg tablet 10 mg PO BID PRN (Reason: muscle spasm) Qty: 14 0RF lidocaine 5 % adhesive patch,medicated 2 patch TOP DAILY PRN (Reason: Pain) Qty: 30 0RF Rx Instructions: leave on most painful area for up to 12 hrs Referrals: Bety Blevins MD [Primary Care Provider] -
== END 2022-02-19 12:54 | disposition home or self-care (01) ==
PROVIDERS: Emergency Provider Emergency Medicine; PCP Internal Medicine
DX: J06.9 Acute upper respiratory infection, unspecified (principal); R05.9 Cough, unspecified; Z20.822 Contact with and (suspected) exposure to COVID-19
CPT/HCPCS: 71046; 87635; 99281; 99283; C9803

== ENCOUNTER → 2022-07-21 08:53 | Outpatient (CLI) | payer MEDICARE, OTHER, SELFPAY ==
[2022-07-21 09:44] LABS: Add Manual Diff / Slide Review NO; Basophils Absolute Auto 0 /uL (0-100); Basophils Percent Auto 0.7 % (0-2); Eosinophils Absolute Auto 100 /uL (0-450); Eosinophils Percent Auto 1.5 % (2-4); Hematocrit 44.5 % (36-46); Hemoglobin 15.4 g/dL (12.0-16.0); Lymphocytes Absolute Auto 2000 /uL (1100-4500); Lymphocytes Percent Auto 37.6 % (25-40); Mean Corpuscular HGB Conc 34.6 % (30-36); Mean Corpuscular Hemoglobin 32.1 PG (26-34); Mean Corpuscular Volume 92.9 fL (80-100); Monocytes Absolute Auto 400 /uL (0-900); Monocytes Percent Auto 7.9 % (3-14); Neutrophils Absolute Auto 2800 /uL (1500-7000); Neutrophils Percent Auto 52.3 % (50-75); Platelet Count 153 X10^3/uL (150-400); Red Blood Cell Count 4.79 X10^6/uL (4.0-5.2); Red Cell Distribution Width 13.2 % (11.6-14.8); White Blood Cell Count 5.4 X10^3/uL (4.5-11.0)
[2022-07-21 09:53] LABS: Alanine Aminotransferase 52 IU/L (<35); Albumin 4.2 g/dL (3.5-5.0); Albumin Globulin Ratio 1.2 (1.0-2.8); Alkaline Phosphatase 76 U/L (38-126); Aspartate Aminotransferase 58 IU/L (14-36); BUN Creatinine Ratio 21.3 (6-22); Bilirubin Total 0.6 mg/dL (0.2-1.3); Blood Urea Nitrogen 19 mg/dL (7-17); Calcium 9.5 mg/dL (8.4-10.2); Carbon Dioxide 31 mmol/L (22-32); Chloride 102 mmol/L (98-107); Cholesterol 200 mg/dL (140-199); Estimated Glomerular Filt Rate > 60 mL/min (>60); Globulin 3.4 g/dL (1.7-4.1); Glucose 105 mg/dL (80-110); HDL Cholesterol 47 mg/dL (40-60); HEMOLYSIS < 15 (0-50); LDL Cholesterol Calculated 101 mg/dL (<100); Potassium 4.4 mmol/L (3.4-5.1); Sodium 141 mmol/L (137-145); Total Protein 7.6 g/dL (6.3-8.2); Triglycerides 261 mg/dL (35-150)
[2022-07-21 10:17] LABS: Creatinine Urine Random 106.5 mg/dL
[2022-07-21 10:37] LABS: Microalbumin Urine Random < 0.6 mg/dL (0-1.6)
[2022-07-21 11:10] LABS: TSH w/ Reflex to FT4 1.71 uIU/mL (0.47-4.68)
[2022-07-21 16:29] LABS: Hep C Virus Ab w/Reflex Quant NEGATIVE s/c (NEGATIVE)
== END ==
PROVIDERS: PCP Family Medicine; Referring Provider Family Medicine; Visit Provider Family Medicine
DX: I10 Essential (primary) hypertension (principal); Z96.651 Presence of right artificial knee joint; C18.9 Malignant neoplasm of colon, unspecified; E78.5 Hyperlipidemia, unspecified; K31.84 Gastroparesis
CPT/HCPCS: 36415; 80053; 80061; 82043; 82570; 83036; 84443; 85025; 86803

== ENCOUNTER 2022-10-21 12:01 | Emergency (ER) | payer MEDICARE, OTHER, SELFPAY ==
[2022-10-21 13:18] VITALS: BP 171/85; PULSE 69; RESP 14; TEMP 36.7; O2SAT 98
--- NOTE | 2022-10-21 13:23 | DI.RAD.S_ITS ---
PROCEDURE: XR ANKLE LT MIN 3V INDICATIONS: pain outer aspect of left ankle TECHNIQUE: 3 views of the ankle were acquired. COMPARISON: None. FINDINGS: Bones: No fractures or dislocations. Midfoot and hindfoot joint osteoarthritic changes are noted with joint space narrowing, subchondral sclerosis and small marginal osteophyte formation. Ankle mortise is normally aligned. No suspicious bony lesions. Well-defined plantar and dorsal calcaneal enthesophytes are seen. Soft tissues: No tibiotalar joint effusion. Achilles tendon appears normal. IMPRESSION: No ankle fracture or dislocation. Midfoot and hindfoot joint osteoarthritis. Well-defined calcaneal enthesophytes. Dictated by: Ty Astudillo M.D. on 10/21/2022 at 13:44 Approved by: Ty Astudillo M.D. on 10/21/2022 at 13:45
--- NOTE | 2022-10-21 15:44 | ED.EXTPRO ---
HPI - Extremity Problem <RENUKA Shane - Last Filed: 10/21/22 16:03> General Chief complaint: Extremity Problem,Nontraumatic Stated complaint: swollen lt ankle, painful Time Seen by Provider: 10/21/22 15:22 Source: patient Mode of arrival: Ambulatory History of Present Illness HPI Narrative: This is a 67-year-old with history of hypertension, hyperlipidemia and colon cancer with history of total knee arthroplasty who presents emergency department complaining of 4 days of worsening left ankle pain with lateral edema posterior to the malleolus. She has a 1-year-old puppy states that she was playing in the field 5 days, could have twisted her ankle but remember any injury. She is ambulatory and states it is painful with ambulation. She is had progressive pain around the lateral ankle and tenderness to palpation. She denies any surgery to her ankles are a prior fractures, states that she has sprained ankles in the past and has worn a boot before. She denies any sensation changes, weakness or mobility changes. Her primary care provider is Dr. Owens. She denies history of diabetes, sensation changes, or mobility deficit. States that she has some property and has been walking the dog but otherwise does not participate in exertional activities. Related Data Home Medications Medication Instructions Recorded Confirmed atorvastatin 20 mg tablet 20 mg PO DAILY 06/06/19 08/18/22 Previous Rx's Medication Instructions Recorded sumatriptan succinate 100 mg tablet 100 mg PO Q2-4H PRN Headache #60 06/28/22 tabs trazodone 50 mg tablet 50 mg PO BEDTIME PRN insomnia #60 06/28/22 tabs Allergies Allergy/AdvReac Type Severity Reaction Status Date / Time No Known Drug Allergies Allergy Verified 10/21/22 13:23 Review of Systems <RENUKA Shane - Last Filed: 10/21/22 16:03> Review of Systems ROS Unobtainable: All systems reviewed & are unremarkable except as noted in HPI and below Patient History <RENUKA Shane - Last Filed: 10/21/22 16:03> Medical History Anxiety Colon cancer (~2006) Depression Elevated liver enzymes Enlarged thyroid (~2007) Headache HLD (hyperlipidemia) HTN (hypertension) SUZIE on CPAP Osteoarthritis Patient denies medical problems Surgical History History of colonoscopy (~2017) History of ear surgery History of hemorrhoidectomy Hx of tonsillectomy Social History household members: spouse Smoking Status: Never smoker Smoking Status: Never smoker alcohol intake frequency: holidays/special occasions only Substance Use Type: does not use Exam <RENUKA Shane - Last Filed: 10/21/22 16:03> Narrative Exam Narrative: Reviewed vitals signs and nursing notes. General: cooperative, comfortable, in no acute distress, well groomed MSK: moves all extremities, neurovascularly intact, no weakness, normal tone, edema posterior to the lateral malleolus of her left ankle, no tenderness over Achilles tendon, no ecchymosis or erythema no plantar ecchymosis, no tenderness over metacarpals, CFL and ATFL tenderness to palpation, mild lateral malleolus tenderness without tenderness over medial malleolus Skin: brisk capillary refill, without pallor or erythema as above, edema without erythema or ecchymosis Neuro: normal speech and cognition, A&O x3, ambulatory, clear speech Psych: mental status is grossly normal, congruent mood, normal affect, pleasant and cooperative Initial Vital Signs Initial Vital Signs: Vital Signs Temperature 98.1 F 10/21/22 13:18 Pulse Rate 69 10/21/22 13:18 Respiratory Rate 14 10/21/22 13:18 Blood Pressure 171/85 H 10/21/22 13:18 Pulse Oximetry 98 10/21/22 13:18 Oxygen Delivery Method 10/21/22 13:18 <Peg Mcclelland DO - Last Filed: 10/26/22 07:27> Initial Vital Signs Initial Vital Signs: Vital Signs Temperature 98.1 F 10/21/22 13:18 Pulse Rate 69 10/21/22 13:18 Respiratory Rate 14 10/21/22 13:18 Blood Pressure 171/85 H 10/21/22 13:18 Pulse Oximetry 98 10/21/22 13:18 Oxygen Delivery Method 10/21/22 13:18 Procedures <RENUKA Shane - Last Filed: 10/21/22 16:03> Orthopedic Splinting/Casting Injury #1: Side: left Lower Extremity Injury Location: ankle Lower Extremity Immobilizer: boot orthosis Post splinting neuro exam: intact Post splinting vascular exam: intact Placed by: Nursing Course <RENUKA Shane - Last Filed: 10/21/22 16:03> Orders Ordered: Discontinued Medications Acetaminophen (Acetaminophen 325 Mg Tablet) 975 mg PO NOW ONE Stop: 10/21/22 15:43 Last Admin: 10/21/22 16:24 Dose: 975 mg Documented By: NILES Ibuprofen (Ibuprofen 400 Mg Tablet) 600 mg PO NOW ONE Stop: 10/21/22 15:43 Last Admin: 10/21/22 16:24 Dose: 600 mg Documented By: NILES Vital Signs Vital signs: Vital Signs - 8 hr 10/21/22 13:18 Temperature 98.1 F Pulse Rate 69 Respiratory Rate 14 Blood Pressure 171/85 H Pulse Oximetry 98 Oxygen Delivery Method Room Air <Peg Mcclelland DO - Last Filed: 10/26/22 07:27> Orders Ordered: Discontinued Medications Acetaminophen (Acetaminophen 325 Mg Tablet) 975 mg PO NOW ONE Stop: 10/21/22 15:43 Last Admin: 10/21/22 16:24 Dose: 975 mg Documented By: NILES Ibuprofen (Ibuprofen 400 Mg Tablet) 600 mg PO NOW ONE Stop: 10/21/22 15:43 Last Admin: 10/21/22 16:24 Dose: 600 mg Documented By: NILES Vital Signs Vital signs: Vital Signs - 8 hr 10/21/22 13:18 Temperature 98.1 F Pulse Rate 69 Respiratory Rate 14 Blood Pressure 171/85 H Pulse Oximetry 98 Oxygen Delivery Method Room Air MDM - Extremity (Nontraumatic) <RENUKA Shane - Last Filed: 10/21/22 16:03> Imaging Data Extremity x-ray #1: Radiologist's Impression: PROCEDURE:? XR ANKLE LT MIN 3V ? INDICATIONS:? pain outer aspect of left ankle ? TECHNIQUE:? 3 views of the ankle were acquired.? ? COMPARISON:? None. ? FINDINGS:? ? Bones:? No fractures or dislocations.? Midfoot and hindfoot joint osteoarthritic changes are noted with joint space narrowing, subchondral sclerosis and small marginal osteophyte formation.? Ankle mortise is normally aligned.? No suspicious bony lesions.? Well-defined plantar and dorsal calcaneal enthesophytes are seen. ? Soft tissues:? No tibiotalar joint effusion.? Achilles tendon appears normal.? ? ? IMPRESSION:? No ankle fracture or dislocation.? Midfoot and hindfoot joint osteoarthritis.? Well-defined calcaneal enthesophytes. ?? ? Dictated by: Ty Astudillo M.D. on 10/21/2022 at 13:44 ? ? Approved by: Ty Astudillo M.D. on 10/21/2022 at 13:45 ? MDM Narrative Medical decision making narrative: CC: Worsening left ankle pain This is a 67-year-old with history of hypertension, hyperlipidemia and colon cancer with history of total knee arthroplasty who presents emergency department complaining of 4 days of worsening left ankle pain with lateral edema posterior to the malleolus. Differential diagnoses include, but are not limited to: Ankle sprain, avulsion fracture, fracture, osteoarthritis, plantar fasciitis, gout, proximal fibula injury, stress fracture, calcaneal fracture I have reviewed the patient's vital signs and nursing notes as well as prior records if available. My imaging interpretation: Negative left ankle x-ray for fracture or acute joint abnormality Re-evaluations/Ongoing course of care: Left walking boot was applied by RN for stability until patient can follow-up with orthopedics if ongoing or her PCP for physical therapy or outpatient tests as needed. Treated her with Tylenol and ibuprofen. Patient's symptoms improved over duration of stay with above-stated therapies. Social considerations that may affect disposition: none Shared decision making: Regarding plan of care and disposition, patient states understanding that she will follow up with Orthopedics if her pain is ongoing beyond 1 more week with walking boot, reduced activity, pain control and frequent elevation with icing. Disposition: see below, along with detailed discharge instructions that have been reviewed with the patient as well as indications for ED re-evaluation and additional outpatient follow-up. Questions are addressed and there is agreement with the plan and for follow-up. Patient is appropriate for outpatient management. MIPS: This encounter doesn't have any diagnosis associated with MIPS criteria. [facility], personally performed the services described in the documentation, and it accurately records my words and actions. I collaborated with the ED attending physician for ROBERT level 2, 3, and some level 4s as appropriate. Discharge Plan Departure Patient Disposition: Home Clinical Impression: Ankle sprain Qualifiers: Encounter type: initial encounter Involved ligament of ankle: unspecified ligament Laterality: left Qualified Code(s): S93.402A - Sprain of unspecified ligament of left ankle, initial encounter Instructions: Ankle Sprain Activity Restrictions/Additional Instructions: *You have been diagnosed with a left ankle sprain with worsening pain after moving on it. Please use this immobilizer to prevent exacerbation of injury, ice it, elevate it frequently, use Tylenol and ibuprofen as needed or topical diclofenac gel available [id number]. Try to avoid extra work and follow-up at [facility] in a week or more if you have ongoing pain. Please follow-up with your PCP as needed, I will send him this chart, the x-ray does not show any acute fracture. Please return for numbness, tingling, weakness, worsening pain as time goes on. *What to do: *Please continue to take your regular medications as directed. [ ] New medication prescriptions sent to your pharmacy: [ ] [ ] New medication written as a paper prescription [x ] No new medications given *Please follow up with your primary care provider in 2-3 days, call for an appointment. Let them know you were seen in the Emergency Department and that we asked that you be seen for follow-up. We will electronically transmit a record of today's note if your PCP is in our system *If you do not have a primary care provider please contact [phone] to establish care with one of the [facility] primary care providers. *Return to Emergency Department if you should have any new, worsening, or concerning symptoms, such as [fever greater than 101F, chills, worsening pain, persistent vomiting or other bothersome symptoms]. Prescriptions: No Action sumatriptan succinate 100 mg tablet 100 mg PO Q2-4H PRN (Reason: Headache) Qty: 60 0RF trazodone 50 mg tablet 50 mg PO BEDTIME PRN (Reason: insomnia) Qty: 60 0RF atorvastatin 20 mg tablet 20 mg PO DAILY Referrals: [facility] [Provider Group] Feliz Owens MD [Primary Care Provider] - Stand Alone Forms: Patient Portal/API <Peg Mcclelland DO - Last Filed: 10/26/22 07:27> Cosign ED Attending Cosnevaehature Attestation: I was immediately available in the department for consultation. Documentation has been reviewed. I agree with assessment and plan.
[2022-10-21] MEDS: ACETAMINOPHEN 325 MG TABLET 975 MG PO (16:24)
[2022-10-21] MEDS: IBUPROFEN 400 MG TABLET 600 MG PO (16:24)
[2022-10-21 16:27] VITALS: BP 145/65; PULSE 66; RESP 16; O2SAT 96
== END 2022-10-21 16:33 | disposition home or self-care (01) ==
PROVIDERS: Emergency Provider Nurse Practitioner Critical Care Medicine; PCP Family Medicine
DX: S93.402A Sprain of unspecified ligament of left ankle, initial encounter (principal); X50.1XXA Overexertion from prolonged static or awkward postures, initial encounter
CPT/HCPCS: 73610; 99283

== ENCOUNTER 2023-01-02 06:47 | Day surgery (SDC) | payer MEDICARE, OTHER, SELFPAY ==
[2023-01-02 07:33] VITALS: BP 156/80; PULSE 81; RESP 18; TEMP 36.2; O2SAT 100; BMI 38.9
[2023-01-02] MEDS: LACTATED RINGERS 1,000 ML 84 ML IV (07:41)
--- NOTE | 2023-01-02 07:59 | PM.HP.1 ---
History of Present Illness History of Present Illness Date Patient Seen: 01/02/23 Time Patient Seen: 07:59 Chief complaint: Colonoscopy Narrative: Here for colon cancer surveillance. Constipation. Patient History Medical History Anxiety Colon cancer (~2006) Depression Elevated liver enzymes Enlarged thyroid (~2007) Headache HLD (hyperlipidemia) HTN (hypertension) SUZIE on CPAP Osteoarthritis Patient denies medical problems Surgical History History of colonoscopy (~2016) History of ear surgery History of hemorrhoidectomy Hx of tonsillectomy Family & Social History Social History: household members spouse Tobacco & Substance use: Smoking Status Never smoker alcohol intake current alcohol intake frequency holiday/special occasion Substance Use Type does not use Meds Home Medications and Allergies Home Medications Medication Instructions Recorded Confirmed Type atorvastatin 20 mg tablet 20 mg PO DAILY 06/06/19 01/02/23 History sumatriptan succinate 100 mg tablet 100 mg PO Q2-4H PRN Headache #60 06/28/22 01/02/23 Rx tabs trazodone 50 mg tablet 50 mg PO BEDTIME PRN insomnia #60 06/28/22 08/18/22 Rx tabs Allergies Allergy/AdvReac Type Severity Reaction Status Date / Time No Known Drug Allergies Allergy Verified 01/02/23 07:31 Review of Systems Review of Systems ROS: Yes All systems reviewed with the patient and are negative except as otherwise documented Exam Vital Signs (past 8 hours): - 01/02/23 07:33 Temperature 97.1 F L Pulse Rate 81 Respiratory Rate 18 Blood Pressure 156/80 H Pulse Oximetry 100 Oxygen Delivery Method Room Air Oxygen Delivery Method Room Air Const General: cooperative HENMT Head: normal to inspection Eyes General: appearance normal, both eyes and all related structures Neck Neck: normal visual inspection Chest Chest: normal inspection of the chest Resp Effort & Inspection: normal respiratory effort Cardio Rate: regular rate GI Inspection: normal to inspection Skin General: no rashes or lesions noted Neuro General: patient alert and patient awake Extrem General: normal to inspection and no pedal edema Psych Appearance: grossly normal Assessment & Plan Assessment & Plan narrative: 67-year-old female with a personal history of colon cancer. She has constipation. Updated colonoscopy is pursued today.
--- NOTE | 2023-01-02 08:00 | PM.PREOP ---
Pre-operative Note Interval Note History & Physical reviewed/Exam performed by Physician: Yes Changes to H&P: No ASA Class (for procedural sedation): III
--- NOTE | 2023-01-02 08:22 | PM.OP.COLON ---
Operative Date/Time/Diagnoses Date of procedure: 01/02/23 Time of procedure: 08:22 Pre-op diagnosis: Personal history of colon cancer and constipation Post-op diagnosis: same Procedure & Clinicians Study performed: Colonoscopy Same procedure as scheduled: Yes Indications: Personal history of colon cancer and constipation Surgeon: Emory Aquino Procedure Notes SCOAP/Timeout: Done Procedure in detail: After the risks and benefits were explained, written and verbal informed consent was obtained. The patient was brought into the procedure room and placed into the left lateral decubitus position. Please see anesthesia notes for sedation details. Digital rectal examination was accomplished. The scope was introduced into the patient and advanced under direct visualization to the cecum as identified by the appendiceal orifice and ileocecal valve. The scope was slowly withdrawn to carefully examine the mucosa for any defects or lesions. Comprehensive imaging was accomplished throughout the rectum including the dentate line. The colon was decompressed, the scope was then removed from the patient who tolerated the procedure well. Pediatric colonoscope Bowel prep adequate Scope withdrawal time: 7 minutes Sedation minutes: 12 Specimen(s): none sent Complications: none Impression: There was a widely patent anastomosis (end to end) at around 20 cm from the anal verge. There were a few scattered shallow diverticula in that region but no evidence of inflammation no mass lesions no significant polyps. No significant mucosal pathology appreciated throughout. Grade 2 hemorrhoids noted on direct views and digital exam. Endoscopic diagnosis 1. Grade 2 hemorrhoids 2. Patent sigmoid anastomosis 3. Otherwise visually unremarkable colonoscopy Post-procedure Plan for aftercare: 1. Continue aggressive bowel regimen as discussed in clinic. 2. Repeat colonoscopy 5 years Disposition: PACU
[2023-01-02 08:25] VITALS: BP 126/69; PULSE 73; RESP 12; TEMP 35.9; O2SAT 98
[2023-01-02 08:30] VITALS: BP 116/64; PULSE 77; RESP 12; TEMP 36.3; O2SAT 99
[2023-01-02 08:35] VITALS: BP 145/78; PULSE 68; RESP 16; TEMP 36.3; O2SAT 98
== END 2023-01-02 09:02 | disposition home or self-care (01) ==
PROVIDERS: PCP Family Medicine; Referring Provider Internal Medicine Gastroenterology; Visit Provider Internal Medicine Gastroenterology
PROC: 0DJD8ZZ Inspection of Lower Intestinal Tract, Via Natural or Artificial Opening Endoscopic (ICD-10-PCS; CPT 45378; principal; 2023-01-02 08:00)
DX: Z12.11 Encounter for screening for malignant neoplasm of colon (principal); Z85.038 Personal history of other malignant neoplasm of large intestine; K59.00 Constipation, unspecified; K64.0 First degree hemorrhoids
CPT/HCPCS: G0105; J2704

== ENCOUNTER 2023-02-05 07:59 | Emergency (ER) | payer MEDICARE, OTHER, SELFPAY ==
--- NOTE | 2023-02-05 08:09 | DI.RAD.S_ITS ---
PROCEDURE: XR ANKLE LT MIN 3V INDICATIONS: rolled ankle Monday, pain, swelling, bruising TECHNIQUE: 3 views of the ankle were acquired. COMPARISON: [facility], CR, XR FOOT LT MIN 3V, 02/05/2023, 8:39. [facility], CR, XR ANKLE LT MIN 3V, 10/21/2022, 13:25. FINDINGS: Bones: There is an avulsion fracture fragment distal to the lateral malleolus, which appears new compared to the prior. Along the distal aspect of the medial malleolus, there is a stable avulsion fracture seen. The talar dome demonstrates no paige abnormality. No suspicious lytic or blastic lesions are seen. A moderate plantar calcaneal spur can be seen. Soft tissues: Generalized soft tissue swelling is seen, which is more prominent laterally. IMPRESSION: There is a new avulsion fracture fragment seen distal to the lateral malleolus, with associated soft tissue swelling. There is a remote, stable avulsion fracture fragment seen along the inferior aspect of the medial malleolus. Dictated by: Zeyad Lock M.D. on 02/05/2023 at 8:31 Approved by: Zeyad Lock M.D. on 02/05/2023 at 8:33
[2023-02-05 08:10] VITALS: BP 128/73; PULSE 98; RESP 16; TEMP 36.1; O2SAT 97; BMI 40.7
--- NOTE | 2023-02-05 08:15 | ED_ITS ---
HPI - Extremity Injury (Lower) General Chief Complaint: Extremity Injury, Lower Stated Complaint: injured lt foot while walking dog Fri, fell Time Seen by Provider: 02/05/23 08:02 Source: patient Mode of arrival: Wheelchair Limitations: no limitations History of Present Illness HPI Narrative: Patient is a 67-year-old female who is here for evaluation of a left ankle/foot injury. She states that it happened approximately 2 days ago when she was walking in a field and the ground underneath her foot gave way when she was standing next to a newly dog trench. She states she rolled her ankle. No other injuries from the event. She has been ambulatory since the event but it has been extremely uncomfortable for her. She is been having to use a walker. She does have an ankle brace on it from home. Most of her discomfort is located on the outside of the ankle and also on the outside of the foot. She is no knee tenderness. It has been quite swollen in his started to bruise. Related Data Home Medications Medication Instructions Recorded Confirmed atorvastatin 20 mg tablet 20 mg PO DAILY 06/06/19 01/02/23 Previous Rx's Medication Instructions Recorded sumatriptan succinate 100 mg tablet 100 mg PO Q2-4H PRN Headache #60 06/28/22 tabs trazodone 50 mg tablet 50 mg PO BEDTIME PRN insomnia #60 06/28/22 tabs Allergies Allergy/AdvReac Type Severity Reaction Status Date / Time No Known Drug Allergies Allergy Verified 02/05/23 08:12 Review of Systems Constitutional Constitutional: Reports system reviewed and no additional complaints, except as documented Musculoskeletal Musculoskeletal: Reports system reviewed and no additional complaints, except as documented Integumentary/Breasts Skin/Breast: Reports system reviewed and no additional complaints, except as documented Patient History Medical History Anxiety Colon cancer (~2006) Depression Elevated liver enzymes Enlarged thyroid (~2007) Headache HLD (hyperlipidemia) HTN (hypertension) SUZIE on CPAP Osteoarthritis Patient denies medical problems Surgical History History of colonoscopy (~2016) History of ear surgery History of hemorrhoidectomy Hx of tonsillectomy Social History household members: spouse Smoking Status: Never smoker alcohol intake: current Smoking Status: Never smoker alcohol intake frequency: holidays/special occasions only Substance Use Type: does not use Exam Initial Vital Signs Initial Vital Signs: Vital Signs Temperature 97 F L 02/05/23 08:10 Pulse Rate 98 H 02/05/23 08:10 Respiratory Rate 16 02/05/23 08:10 Blood Pressure 128/73 02/05/23 08:10 Pulse Oximetry 97 02/05/23 08:10 Oxygen Delivery Method Room Air 02/05/23 08:10 Cardio Pulses: dorsalis pedis present on the left Skin Other: Bruising located throughout the lateral aspect of the ankle in the dorsum of the foot Neuro Sensory Exam: no sensory deficits noted Extrem Other: Patient has no proximal fibula/tibia tenderness. She is tender along the lateral and medial malleolus. Also tender along the lateral aspect of the foot. Not tender over the Lisfranc joint. Toes are unremarkable. Achilles tendon is intact and not tender to palpation. Course Orders Ordered: ED Orders 02/05/23 08:09 XR ankle LT min 3V Stat 02/05/23 08:15 XR foot LT min 3V Stat Vital Signs Vital signs: Vital Signs - 8 hr 02/05/23 08:10 Temperature 97 F L Pulse Rate 98 H Respiratory Rate 16 Blood Pressure 128/73 Pulse Oximetry 97 Oxygen Delivery Method Room Air MDM - Extremity Injury (Lower) Imaging Data Extremity x-ray #1: Radiologist's Impression: PROCEDURE:? XR ANKLE LT MIN 3V ? INDICATIONS:? rolled ankle Monday, pain, swelling, bruising ? TECHNIQUE:? 3 views of the ankle were acquired.? ? COMPARISON:? [facility], CR, XR FOOT LT MIN 3V, 02/05/2023, 8:39.? [facility], CR, XR ANKLE LT MIN 3V, 10/21/2022, 13:25. ? FINDINGS:? ? Bones:? There is an avulsion fracture fragment distal to the lateral malleolus, which appears new compared to the prior. ? Along the distal aspect of the medial malleolus, there is a stable avulsion fracture seen. ? The talar dome demonstrates no paige abnormality.? No suspicious lytic or blastic lesions are seen.? A moderate plantar calcaneal spur can be seen. ? Soft tissues:? Generalized soft tissue swelling is seen, which is more prominent laterally. ? ? IMPRESSION:? There is a new avulsion fracture fragment seen distal to the lateral malleolus, with associated soft tissue swelling. ? There is a remote, stable avulsion fracture fragment seen along the inferior aspect of the medial malleolus. Extremity x-ray #2: Radiologist's Impression: PROCEDURE:? XR FOOT LT MIN 3V ? INDICATIONS:? foot pain after fall ? TECHNIQUE:? 3 views of the foot were acquired.? ? COMPARISON:? [facility], CR, XR ANKLE LT MIN 3V, 02/05/2023, 8:18. ? FINDINGS:? ? Bones:? An avulsion fracture fragment can be seen distal to the lateral malleolus. ? Foot degenerative change can be seen, which is most focal along the Lisfranc joint, with milder degenerative changes elsewhere.? A moderate plantar calcaneal spur can be seen. ? Soft tissues:? No tibiotalar joint effusion.? Achilles tendon appears normal.? ? ? IMPRESSION:? Distal lateral malleolar fracture. ? Focal Lisfranc joint degenerative change. [facility] Narrative Medical decision making narrative: Patient does have an avulsion fracture of the distal fibula. This is where she is having most of her discomfort. She does have swelling around her foot as well. She is minimal with no discomfort over the Lisfranc joint. Her Achilles tendon is intact. She is otherwise neurovascularly intact. I did discuss this with her. The patient states she does have a left foot orthopedic boot at home. She states that it is still in good condition and fits well and she could wear this. We did discuss she could walk as tolerated and use the walker as tolerated. She has Tylenol at home that she would like to take for discomfort. Will discharge patient home with return precautions. She expressed understanding and agreement. Discharge Plan Departure Patient Disposition: Home Clinical Impression: Fracture of distal end of fibula Instructions: DI for Avulsion Fracture, How to Use a Walking Boot Activity Restrictions/Additional Instructions: The orthopedic boot should be worn when you were standing or walking. You can take it off to shower and at night to sleep or if you were just sitting at home. I do recommend that you keep your ankle elevated and keep ice over the area. Contact your primary doctor for follow-up. Return to the emergency department for new or worsening symptoms. Prescriptions: No Action sumatriptan succinate 100 mg tablet 100 mg PO Q2-4H PRN (Reason: Headache) Qty: 60 0RF trazodone 50 mg tablet 50 mg PO BEDTIME PRN (Reason: insomnia) Qty: 60 0RF atorvastatin 20 mg tablet 20 mg PO DAILY Referrals: Feliz Owens MD [Primary Care Provider] - Stand Alone Forms: Patient Portal/API
--- NOTE | 2023-02-05 08:15 | DI.RAD.S_ITS ---
PROCEDURE: XR FOOT LT MIN 3V INDICATIONS: foot pain after fall TECHNIQUE: 3 views of the foot were acquired. COMPARISON: [facility], CR, XR ANKLE LT MIN 3V, 02/05/2023, 8:18. FINDINGS: Bones: An avulsion fracture fragment can be seen distal to the lateral malleolus. Foot degenerative change can be seen, which is most focal along the Lisfranc joint, with milder degenerative changes elsewhere. A moderate plantar calcaneal spur can be seen. Soft tissues: No tibiotalar joint effusion. Achilles tendon appears normal. IMPRESSION: Distal lateral malleolar fracture. Focal Lisfranc joint degenerative change. Dictated by: Zeyad Lock M.D. on 02/05/2023 at 8:33 Approved by: Zeyad Lock M.D. on 02/05/2023 at 8:34
[2023-02-05 10:04] VITALS: BP 122/72; PULSE 86; RESP 20; O2SAT 97
== END 2023-02-05 10:04 | disposition home or self-care (01) ==
PROVIDERS: Emergency Provider Emergency Medicine; PCP Family Medicine
DX: S82.62XA Displaced fracture of lateral malleolus of left fibula, initial encounter for closed fracture (principal); X50.1XXA Overexertion from prolonged static or awkward postures, initial encounter
CPT/HCPCS: 73610; 73630; 99283

== ENCOUNTER 2023-09-23 16:22 | Emergency (ER) | payer MEDICARE, OTHER, SELFPAY ==
[2023-09-23] VITALS (20 sets, daily range): BP systolic 144–182; BP diastolic 62–79; PULSE 98–120; RESP 17–48; TEMP 36.8–37.8; O2SAT 91–100; BMI 40.7
--- NOTE | 2023-09-23 16:44 | DI.RAD.S_ITS ---
PROCEDURE: XR CHEST 2V INDICATIONS: cough x 2 days, tachycardia TECHNIQUE: 2 views of the chest were acquired. COMPARISON: [facility], CR, XR CHEST 2V, 02/19/2022, 10:42. [facility], CR, XR CHEST 1V, 07/19/2020, 11:27. FINDINGS: Surgical changes and devices: None. Lungs and pleura: Lungs are clear. No pleural effusions or pneumothorax. Mediastinum: Mediastinal contours are normal. Heart size is normal. Bones and chest wall: No suspicious bony abnormalities. Soft tissues appear unremarkable. IMPRESSION: No acute cardiopulmonary abnormality is seen. Dictated by: Zeyad Lock M.D. on 09/23/2023 at 16:26 Approved by: Zeyad Lock M.D. on 09/23/2023 at 16:27
[2023-09-23 17:19] LABS: COVID19 -Nasal RAPID Negative (Negative)
[2023-09-23] MEDS: SODIUM CHLORIDE 0.9% 1,000 ML 1000 ML IV (17:33)
[2023-09-23 17:38] LABS: Prothrombin Time 11.9 SECONDS (9.4-12.5)
[2023-09-23 17:41] LABS: PTT Partial Thromboplastin Tim 30 SECONDS (25.1-36.5)
[2023-09-23 17:44] LABS: Lactate (Lactic Acid) 2.7 mmol/L (0.7-2.1); Lipase 144 U/L (23-300)
[2023-09-23 17:46] LABS: Alanine Aminotransferase 80 IU/L (<35); Albumin 4.4 g/dL (3.5-5.0); Albumin Globulin Ratio 1.2 (1.0-2.8); Alkaline Phosphatase 87 U/L (38-126); Aspartate Aminotransferase 118 IU/L (14-36); BUN Creatinine Ratio 15.6 (6-22); Bilirubin Total 0.8 mg/dL (0.2-1.3); Blood Urea Nitrogen 12 mg/dL (7-17); Calcium 9.9 mg/dL (8.4-10.2); Carbon Dioxide 27 mmol/L (22-32); Chloride 102 mmol/L (98-107); Creatine Kinase 40 U/L (30-135); Estimated Glomerular Filt Rate > 60 mL/min (>60); Globulin 3.8 g/dL (1.7-4.1); Glucose 172 mg/dL (80-110); HEMOLYSIS < 15 (0-50); Sodium 140 mmol/L (137-145); Total Protein 8.2 g/dL (6.3-8.2)
--- NOTE | 2023-09-23 17:48 | PC.NURSE ---
Pt presented to the emergency department today because she has been experiencing respiratory sx and a worsening cough. Pt reports that cough is productive and she has been coughing up greenish-yellow thick sputum. Pt is afebrile. HR 120. RR 20 without any significant work of breathing. R anterior lung sounds diminished. Crackles upon auscultaion of left anterior lung. A&Ox4. AUTOMATED WEAVER intact. Denies cp.
[2023-09-23 17:49] LABS: Add Manual Diff / Slide Review NO; Basophils Absolute Auto 0 /uL (0-100); Basophils Percent Auto 0.5 % (0-2); Eosinophils Absolute Auto 100 /uL (0-450); Eosinophils Percent Auto 0.9 % (2-4); Hematocrit 48.5 % (36-46); Lymphocytes Absolute Auto 800 /uL (1100-4500); Lymphocytes Percent Auto 7.9 % (25-40); Mean Corpuscular Hemoglobin 32.7 PG (26-34); Mean Corpuscular Volume 93.4 fL (80-100); Monocytes Absolute Auto 600 /uL (0-900); Neutrophils Absolute Auto 8200 /uL (1500-7000); Neutrophils Percent Auto 84.7 % (50-75); Platelet Count 159 X10^3/uL (150-400); Red Cell Distribution Width 12.9 % (11.6-14.8); White Blood Cell Count 9.7 X10^3/uL (4.5-11.0)
[2023-09-23 17:57] LABS: Troponin I < 0.012 ng/mL (0.01-0.034)
[2023-09-23 18:02] LABS: Procalcitonin 0.14 ng/mL (<0.5)
[2023-09-23 18:25] LABS: NT-proBNP (BNP-Adult 18+) 122 pg/mL (<125)
--- NOTE | 2023-09-23 18:54 | ED_ITS ---
HPI - General Adult General Chief complaint: Shortness of Breath/Dyspnea Stated complaint: coughing increasing/ pos covid? Time Seen by Provider: 09/23/23 17:55 Source: patient Mode of arrival: Ambulatory History of Present Illness HPI narrative: 68-year-old lady with a history of colon cancer in 2006, hypertension, hyperlipidemia, ankle fracture in February of this year presents today complaining of a few days of difficult taking a deep breath, cough, chills, sneezing. She is not complaining of significant chest pain. She notes low-grade headache. There is no abdominal pain vomiting or diarrhea. Related Data Home Medications Medication Instructions Recorded Confirmed atorvastatin 20 mg tablet 20 mg PO DAILY 06/06/19 02/16/23 Previous Rx's Medication Instructions Recorded trazodone 50 mg tablet 50 mg PO BEDTIME PRN insomnia #60 06/28/22 tabs sumatriptan succinate 100 mg tablet 100 mg PO Q2-4H PRN Headache #60 06/05/23 tabs Allergies Allergy/AdvReac Type Severity Reaction Status Date / Time No Known Drug Allergies Allergy Verified 09/23/23 16:45 Review of Systems Review of Systems Narrative: Pertinent positive and negative findings as per HPI Patient History Medical History Elevated liver enzymes Anxiety HLD (hyperlipidemia) Osteoarthritis SUZIE on CPAP HTN (hypertension) Headache Depression Enlarged thyroid (~2007) Colon cancer (~2006) Patient denies medical problems Surgical History History of hemorrhoidectomy History of colonoscopy (~2016) History of ear surgery Hx of tonsillectomy Social History household members: spouse Smoking Status: Never smoker alcohol intake: current Smoking Status: Never smoker alcohol intake frequency: holidays/special occasions only Substance Use Type: does not use Exam Initial Vital Signs Initial Vital Signs: Vital Signs Temperature 98.3 F 09/23/23 16:45 Pulse Rate 120 H 09/23/23 16:45 Respiratory Rate 22 09/23/23 16:45 Blood Pressure 182/79 H 09/23/23 16:45 Pulse Oximetry 97 09/23/23 16:45 Oxygen Delivery Method Room Air 09/23/23 16:45 General: Chronically ill-appearing woman, appears to feel unwell but is not acutely toxic. And is Able to give a complete and coherent history. HEENT: Moist mucous membranes, normal sclera with reactive pupils, Neck: No JVD, supple Respiratory: Lungs are clear to auscultation, no wheezing no rales no rhonchi. Full and symmetrical air movement Cardiac: Mild tachycardia, Regular rate and rhythm no murmurs no bruits Abdomen: Soft, nontender, good bowel tones, no flank pain Skin: Warm and dry, no rashes Neurologic: Grossly neurologically intact with no obvious asymmetries or abnormalities Extremities: No trauma, well perfused, no lower extremity edema Psych: Cooperative, appropriate insight and affect Course Orders Ordered: ED Orders 09/23/23 16:44 XR chest 2V Stat 09/23/23 16:50 COVID19 -Nasal RAPID Stat 09/23/23 16:56 RT Consult Eval and Treat NOW 09/23/23 17:24 BNP [NT-proBNP (BNP-Adult 18+)] Stat Complete Blood Count AUTO DIFF Stat Comprehensive Metabolic Panel Stat D Dimer Stat Lactate (Lactic Acid) Stat Lipase Stat PTT Partial Thromboplastin Jose F Stat Procalcitonin Stat Prothrombin Time INR Stat Troponin & CK Cardiac Panel Stat 09/23/23 17:38 EKG-12 Lead Stat 09/23/23 17:53 Blood Culture Stat 09/23/23 18:31 Respiratory Panel (Film Array) Stat 09/23/23 18:38 Urine Microscopic Stat 09/23/23 19:41 CT angio chest PE protocol Stat Ondansetron HCl (Ondansetron 4 Mg/2 Ml Inj) 4 mg IV NOW PRN PRN Reason: Nausea And Vomiting Ondansetron HCl (Ondansetron 4 Mg Odt) 4 mg SL NOW PRN PRN Reason: Nausea And Vomiting Discontinued Medications Sodium Chloride (Normal Saline 0.9%) 1,000 mls @ 1,000 mls/hr IV BOLUS ONE Stop: 09/23/23 17:55 Last Infusion: 09/23/23 18:54 Dose: Infused Documented By: Admin: 09/23/23 17:33 Dose: 1,000 mls/hr Documented By: MERLE Ketorolac Tromethamine (Ketorolac 30 Mg/Ml Vial) 15 mg IV NOW ONE Stop: 09/23/23 19:11 Last Admin: 09/23/23 19:39 Dose: 15 mg Documented By: SB Vital Signs Vital signs: Vital Signs - 8 hr 09/23/23 16:45 09/23/23 16:56 09/23/23 17:00 Temperature 98.3 F Pulse Rate 120 H 109 H 111 H Respiratory Rate 22 18 23 Blood Pressure 182/79 H Pulse Oximetry 97 99 100 Oxygen Delivery Method Room Air 09/23/23 17:30 09/23/23 18:00 09/23/23 18:30 Temperature Pulse Rate 105 H 104 H 104 H Respiratory Rate 20 22 Blood Pressure Pulse Oximetry 98 97 Oxygen Delivery Method 09/23/23 18:31 09/23/23 18:31 09/23/23 19:00 Temperature Pulse Rate 118 H 114 H Respiratory Rate Blood Pressure 172/74 H Pulse Oximetry 98 96 Oxygen Delivery Method 09/23/23 19:01 09/23/23 19:01 09/23/23 19:30 Temperature Pulse Rate 110 H Respiratory Rate 24 Blood Pressure 158/71 H 162/70 H Pulse Oximetry 96 Oxygen Delivery Method 09/23/23 19:30 09/23/23 20:00 09/23/23 20:02 Temperature Pulse Rate 111 H 117 H 114 H Respiratory Rate 18 20 Blood Pressure Pulse Oximetry 97 97 93 Oxygen Delivery Method 09/23/23 20:02 09/23/23 20:30 09/23/23 20:30 Temperature Pulse Rate 108 H Respiratory Rate 20 Blood Pressure 169/72 H 150/63 H Pulse Oximetry 91 Oxygen Delivery Method 09/23/23 21:00 09/23/23 21:00 09/23/23 21:30 Temperature Pulse Rate 105 H 108 H Respiratory Rate 21 20 Blood Pressure 151/62 H Pulse Oximetry 94 97 Oxygen Delivery Method Room Air 09/23/23 21:30 09/23/23 22:00 09/23/23 22:00 Temperature Pulse Rate 98 H Respiratory Rate 22 Blood Pressure 157/66 H 144/64 H Pulse Oximetry 98 Oxygen Delivery Method Room Air Medical Decision Making Lab Data 09/23/23 17:24 09/23/23 17:24 Labs: Lab Results 09/23/23 09/23/23 09/23/23 Range/Units 16:50 17:24 18:31 WBC 9.7 (4.5-11.0) X10^3/uL RBC 5.20 (4.0-5.2) X10^6/uL Hgb 17.0 H (12.0-16.0) g/dL Hct 48.5 H (36-46) % MCV 93.4 (80-100) fL MCH 32.7 (26-34) PG MCHC 35.0 (30-36) % RDW 12.9 (11.6-14.8) % Plt Count 159 (150-400) X10^3/uL Neut % (Auto) 84.7 H (50-75) % Lymph % (Auto) 7.9 L (25-40) % [place] % (Auto) 6.0 (3-14) % Eos % (Auto) 0.9 L (2-4) % Baso % (Auto) 0.5 (0-2) % Neut # (Auto) 8200 H (2884-5478) /uL Lymph # (Auto) 800 L (8678-4938) /uL [place] # (Auto) 600 (0-900) /uL Eos # (Auto) 100 (0-450) /uL Baso # (Auto) 0 (0-100) /uL PT 11.9 (9.4-12.5) SECONDS INR 1.0 (0.9-1.3) APTT 30 (25.1-36.5) SECONDS D-Dimer 1110 H (<500) ng/ml Sodium 140 (137-145) mmol/L Potassium 4.0 (3.4-5.1) mmol/L Chloride 102 (98-107) mmol/L Carbon Dioxide 27 (22-32) mmol/L BUN 12 (7-17) mg/dL Creatinine 0.77 (0.52-1.04) mg/dL Estimated GFR > 60 (>60) mL/min BUN/Creatinine Ratio 15.6 (6-22) Glucose 172 H (80-110) mg/dL Lactate 2.7 H (0.7-2.1) mmol/L Calcium 9.9 (8.4-10.2) mg/dL Total Bilirubin 0.8 (0.2-1.3) mg/dL AST 118 H (14-36) IU/L ALT 80 H (<35) IU/L Alkaline Phosphatase 87 (38-126) U/L Total Creatine Kinase 40 (30-135) U/L Troponin I < 0.012 (0.01-0.034) ng/mL NT-Pro-B Natriuret Pep 122 (<125) pg/mL Total Protein 8.2 (6.3-8.2) g/dL Albumin 4.4 (3.5-5.0) g/dL Globulin 3.8 (1.7-4.1) g/dL Albumin/Globulin Ratio 1.2 (1.0-2.8) Lipase 144 (23-300) U/L Procalcitonin 0.14 (<0.5) ng/mL Urine RBC (0-5/HPF) Urine WBC (0-5/HPF) Ur Squamous Epith Cells (0-5/HPF) Urine Bacteria (None) Ur Culture Indicated? Chlamy pneumoniae PCR Not detected (Not Detect) Adenovirus (PCR) Not detected (Not Detect) B.parapertussis DNA PCR Not detected (Not Detecte) Coronavirus OC43 (PCR) Not detected (Not Detect) Coronavirus HKU1 (PCR) Not detected (Not Detect) Coronavirus 229E (PCR) Not detected (Not Detect) SARS-CoV-2 (PCR) Negative Not detected (Negative) Coronavirus NL63 (PCR) Not detected (Not Detect) Human Metapneumovir PCR Not detected (Not Detect) Influ A (H1N1 [place]) PCR Detected H (Not Detect) Influenza Type B (PCR) Not detected (Not Detect) M. pneumoniae (PCR) Not detected (Not Detect) Parainfluenza 1 (PCR) Not detected (Not Detect) Parainfluenza 2 (PCR) Not detected (Not Detect) Parainfluenza 3 (PCR) Not detected (Not Detect) Parainfluenza 4 (PCR) Not detected (Not Detect) RSV (PCR) Not detected (Not Detect) Entero/Rhino (PCR) Not detected (Not Detect) 09/23/23 09/23/23 Range/Units 18:38 19:25 WBC (4.5-11.0) X10^3/uL RBC (4.0-5.2) X10^6/uL Hgb (12.0-16.0) g/dL Hct (36-46) % MCV (80-100) fL MCH (26-34) PG MCHC (30-36) % RDW (11.6-14.8) % Plt Count (150-400) X10^3/uL Neut % (Auto) (50-75) % Lymph % (Auto) (25-40) % [place] % (Auto) (3-14) % Eos % (Auto) (2-4) % Baso % (Auto) (0-2) % Neut # (Auto) (7123-5395) /uL Lymph # (Auto) (6430-9197) /uL [place] # (Auto) (0-900) /uL Eos # (Auto) (0-450) /uL Baso # (Auto) (0-100) /uL PT (9.4-12.5) SECONDS INR (0.9-1.3) APTT (25.1-36.5) SECONDS D-Dimer (<500) ng/ml Sodium (137-145) mmol/L Potassium (3.4-5.1) mmol/L Chloride (98-107) mmol/L Carbon Dioxide (22-32) mmol/L BUN (7-17) mg/dL Creatinine (0.52-1.04) mg/dL Estimated GFR (>60) mL/min BUN/Creatinine Ratio (6-22) Glucose (80-110) mg/dL Lactate 1.9 (0.7-2.1) mmol/L Calcium (8.4-10.2) mg/dL Total Bilirubin (0.2-1.3) mg/dL AST (14-36) IU/L ALT (<35) IU/L Alkaline Phosphatase (38-126) U/L Total Creatine Kinase (30-135) U/L Troponin I (0.01-0.034) ng/mL NT-Pro-B Natriuret Pep (<125) pg/mL Total Protein (6.3-8.2) g/dL Albumin (3.5-5.0) g/dL Globulin (1.7-4.1) g/dL Albumin/Globulin Ratio (1.0-2.8) Lipase (23-300) U/L Procalcitonin (<0.5) ng/mL Urine RBC 1-5/hpf (0-5/HPF) Urine WBC 0-1/hpf (0-5/HPF) Ur Squamous Epith Cells 1-5 /hpf (0-5/HPF) Urine Bacteria None seen (None) Ur Culture Indicated? Cult not indicated Chlamy pneumoniae PCR (Not Detect) Adenovirus (PCR) (Not Detect) B.parapertussis DNA PCR (Not Detecte) Coronavirus OC43 (PCR) (Not Detect) Coronavirus HKU1 (PCR) (Not Detect) Coronavirus 229E (PCR) (Not Detect) SARS-CoV-2 (PCR) (Negative) Coronavirus NL63 (PCR) (Not Detect) Human Metapneumovir PCR (Not Detect) Influ A (H1N1 Seas) PCR (Not Detect) Influenza Type B (PCR) (Not Detect) M. pneumoniae (PCR) (Not Detect) Parainfluenza 1 (PCR) (Not Detect) Parainfluenza 2 (PCR) (Not Detect) Parainfluenza 3 (PCR) (Not Detect) Parainfluenza 4 (PCR) (Not Detect) RSV (PCR) (Not Detect) Entero/Rhino (PCR) (Not Detect) Urine Dip Bedside Urine Glucose Negative Bedside Urine Bilirubin - Negative Bedside Urine Ketone - Negative Urine Specific [place] 1.015 Bedside Urine Occult Blood ++ Bedside Urine pH 7.0 Bedside Urine Protein - Negative Bedside Urine Urobilinogen - Negative Bedside Urine Nitrite - Negative Bedside Urine Leukocytes - Negative Esterase Point of care testing: Urine Dip Bedside Urine Glucose Negative Bedside Urine Bilirubin - Negative Bedside Urine Ketone - Negative Urine Specific [place] 1.015 Bedside Urine Occult Blood ++ Bedside Urine pH 7.0 Bedside Urine Protein - Negative Bedside Urine Urobilinogen - Negative Bedside Urine Nitrite - Negative Bedside Urine Leukocytes - Negative Esterase MDM Narrative Medical decision making narrative: CC: Difficulty taking a deep breath with upper respiratory complaints Complicating co-morbidities: Distant history of colon cancer, hyperlipidemia Data collected from: patient, Medical records reviewed: Primary care notes from February are reviewed Differential considered: Viral syndrome, cardiomyopathy, congestive heart failure, pulmonary embolism Exam documented above, pertinent findings include: Persistent tachycardia, pale and slightly flushed but otherwise unremarkable exam Lab Test results independently reviewed as above. Pertinent findings: CBC is unremarkable. No leukocytosis. Slightly elevated red cell count which seems to be close to her baseline but may also represent mild dehydration Chemistries are reassuring. Glucose is slightly elevated at 172 without a diagnosis of diabetes. ALT and AST are slightly elevated, similar to prior. Bilirubin and alk-phos are unremarkable Lactic acid is elevated at 2.7 Troponin is undetectable Lipase is within normal limits Procalcitonin is low suggesting the absence of significant bacterial infection Respiratory panel is positive for influenza A Imaging studies independently reviewed: Chest x-ray the question of some developing right lower lobe infiltrates but no suggestion of severe cardiomyopathy or congestive heart failure. Chest CT scan as interpreted by the radiologist shows no pulmonary embolism and no acute cardiac process. Of note is a left thyroid mass causing rightward deviation of the trachea. The note is made of a CT scan from January of 2008 that showed a thyroid hypodensity that currently is measuring 4.7 x 4.2 cm. Treatments: Fluid, Toradol, Zofran Discussion: Findings reviewed with the patient. She is informed that she does have influenza a and that likely is the majority of her symptom explanation. Reviewed the negative PE study portion of her chest and then also brought up the thyroid abnormality. She states that it is due to her port placement with clots in the left side of her neck secondary to chemo from the colon cancer in 2006 Discharge Plan Departure Patient Disposition: Home Clinical Impression: Influenza A, Mass of thyroid region Instructions: DI for Influenza -- Adult Activity Restrictions/Additional Instructions: Thank you for coming in today You have influenza A. This is part of the reason you feel so horrible and are having a difficult time breathing. Fortunately, there is no sign of bacterial superinfection and no indication for antibiotics. Your heart rate came down with controlling your fever and hydration. There is no sign of sepsis Your oxygen levels on room air are in the upper 90s which means that it is safe for you to go home. An incidental finding on the CT scan was noted. There is a left thyroid mass that measures 4.7 x 4.2 cm that the radiologist noted. I appreciate that you had abnormalities after your port and with blood clots however I believe this does need a bit more follow-up to make sure it is not a cancer or anything else that we need to be concerned with. Please schedule an appointment with your primary care doctor. I have given you a copy of the CT scan so that you can share that with your primary care doctor. If you find that you are getting worse or develop any new symptoms, please feel free to return to the emergency department for further evaluation. Prescriptions: No Action sumatriptan succinate 100 mg tablet 100 mg PO Q2-4H PRN (Reason: Headache) Qty: 60 0RF trazodone 50 mg tablet 50 mg PO BEDTIME PRN (Reason: insomnia) Qty: 60 0RF atorvastatin 20 mg tablet 20 mg PO DAILY Referrals: Feliz Owens MD [Primary Care Provider] - Stand Alone Forms: Patient Portal/API
[2023-09-23 19:11] LABS: Bacteria Urine None Seen; Culture Indicated Urine Cult Not Indicated; RBC Urine 1-5/HPF (0-5/HPF); Squamous Epithelial Cell Urine 1-5 /HPF (0-5/HPF); WBC Urine 0-1/HPF (0-5/HPF)
[2023-09-23 19:12] LABS: Reflexed Lactate in 2 Hours Y
[2023-09-23 19:21] LABS: D Dimer 1110 ng/ml (<500)
[2023-09-23 19:28] LABS: Adenovirus Not Detected (Not Detect); B. parapertussis Not Detected (Not Detecte); Bordetella pertussis Not Detected (Not Detect); Chlamydophila pneumoniae Not Detected (Not Detect); Coronavirus 229E Not Detected (Not Detect); Coronavirus HKU1 Not Detected (Not Detect); Coronavirus NL 63 Not Detected (Not Detect); Coronavirus OC43 Not Detected (Not Detect); Human Metapneumovirus Not Detected (Not Detect); Human Rhinovirus/Enterovirus Not Detected (Not Detect); Influenza A H1-2009 Detected (Not Detect); Influenza B Not Detected (Not Detect); Mycoplasma pneumoniae Not Detected (Not Detect); Parainfluenza Virus 1 Not Detected (Not Detect); Parainfluenza Virus 2 Not Detected (Not Detect); Parainfluenza Virus 3 Not Detected (Not Detect); Parainfluenza Virus 4 Not Detected (Not Detect); Respiratory Syncytial Virus Not Detected (Not Detect); SARS- CoV-2 Not Detected (Not Detecte)
[2023-09-23] MEDS: KETOROLAC 30 MG/ML VIAL 15 MG IV (19:39)
--- NOTE | 2023-09-23 19:41 | DI.CT.S_ITS ---
PROCEDURE: CT ANGIO CHEST PE PROTOCOL INDICATIONS: dyspnea, elevated d dimer TECHNIQUE: After the administration of intravenous contrast, 2 mm thick sections acquired from the pulmonary apices to the posterior costophrenic angles. 3-dimensional maximum intensity projection (MIP) coronal and sagittal reformats were then acquired through the thorax. For radiation dose reduction, the following was used: automated exposure control, adjustment of mA and/or kV according to patient size. COMPARISON: [facility], CT, PE STUDY (CTA CHEST), 01/14/2008, 11:09. FINDINGS: Image quality: Diagnostic. Pulmonary arteries: Pulmonary arteries are normal in size, and demonstrate no intraluminal filling defects to suggest central pulmonary embolism. Lungs and pleura: Lungs are clear. No pleural effusions or pneumothorax. Central and peripheral airways are patent. Mediastinum: Heart size is normal, without pericardial effusion. No mediastinal or hilar adenopathy. Thoracic aorta is normal in caliber and enhancement. Esophagus is normal in caliber, without hiatal hernia. Bones and chest wall: No suspicious bony lesions. Ribs and thoracic spine appear intact throughout. No axillary or supraclavicular adenopathy. There is a large thyroid masslike structure on the left deviating the tracheal airway rightward, and reducing its transverse dimension to approximately 50% or less of a normal caliber. On review of an old CT from 01/14/08 a thyroid hypodensity was present in that area but has increased moderately in size. It now measures up to 4.7 x 4.2 cm. Upper Abdomen: Visualized upper abdominal solid organs appear normal in the early arterial phase of enhancement. IMPRESSION: No pulmonary embolus. No acute cardiopulmonary process. Enlarging left thyroid mass causing rightward deviation of the tracheal airway and also significant reduction in the transverse dimension of the tracheal airway which now measures 7 mm in transverse dimension. Follow-up assessment of this abnormality initially by elective thyroid ultrasound is recommended. Biopsy may become necessary. Please correlate clinically to assess for whether this tracheal airway narrowing explains current symptomatology. Dictated by: Jean Crawley M.D. on 09/23/2023 at 20:23 Approved by: Jean Crawley M.D. on 09/23/2023 at 20:28
[2023-09-23 19:47] LABS: Lactate 2HR (Lactic Acid Rflx) 1.9 mmol/L (0.7-2.1)
== END 2023-09-23 23:02 | disposition home or self-care (01) ==
PROVIDERS: Emergency Medicine; Student in an Organized Health Care Education/Training Program; Emergency Provider Emergency Medicine; PCP Family Medicine
DX: J10.1 Influenza due to other identified influenza virus with other respiratory manifestations (principal); R22.1 Localized swelling, mass and lump, neck; R51.9 Headache, unspecified; Z20.822 Contact with and (suspected) exposure to COVID-19; I10 Essential (primary) hypertension
CPT/HCPCS: 36415; 71046; 71275; 80053; 81003; 81015; 82550; 83605; 83690; 83880; 84145; 84484; 85025; 85379; 85610; 85730; 87040; 87633; 87635; 93005; 93010; 96361; 96374; 99284; C9803; J1885; Q9967

== ENCOUNTER → 2023-11-15 08:21 | Outpatient (CLI) | payer MEDICARE, OTHER, SELFPAY ==
[2023-11-15 09:44] LABS: Add Manual Diff / Slide Review NO; Basophils Absolute Auto 100 /uL (0-100); Basophils Percent Auto 1.3 % (0-2); Eosinophils Absolute Auto 200 /uL (0-450); Eosinophils Percent Auto 4.4 % (2-4); Hematocrit 44.5 % (36-46); Hemoglobin 15.4 g/dL (12.0-16.0); Lymphocytes Absolute Auto 2100 /uL (1100-4500); Lymphocytes Percent Auto 40.5 % (25-40); Mean Corpuscular HGB Conc 34.6 % (30-36); Mean Corpuscular Hemoglobin 32.6 PG (26-34); Mean Corpuscular Volume 94.2 fL (80-100); Monocytes Absolute Auto 400 /uL (0-900); Monocytes Percent Auto 8.4 % (3-14); Neutrophils Absolute Auto 2400 /uL (1500-7000); Neutrophils Percent Auto 45.4 % (50-75); Platelet Count 144 X10^3/uL (150-400); Red Blood Cell Count 4.73 X10^6/uL (4.0-5.2); Red Cell Distribution Width 13.7 % (11.6-14.8); White Blood Cell Count 5.2 X10^3/uL (4.5-11.0)
[2023-11-15 10:12] LABS: Alanine Aminotransferase 88 IU/L (<35); Albumin Globulin Ratio 1.3 (1.0-2.8); Alkaline Phosphatase 74 U/L (38-126); Aspartate Aminotransferase 145 IU/L (14-36); BUN Creatinine Ratio 20.3 (6-22); Bilirubin Total 0.9 mg/dL (0.2-1.3); Blood Urea Nitrogen 14 mg/dL (7-17); Calcium 9.9 mg/dL (8.4-10.2); Carbon Dioxide 29 mmol/L (22-32); Chloride 104 mmol/L (98-107); Cholesterol 262 mg/dL (140-199); Estimated Glomerular Filt Rate > 60 mL/min (>60); Globulin 3.2 g/dL (1.7-4.1); Glucose 107 mg/dL (80-110); HDL Cholesterol 41 mg/dL (40-60); HEMOLYSIS < 15 (0-50); LDL Cholesterol Calculated 158 mg/dL (<100); Sodium 138 mmol/L (137-145); Total Protein 7.2 g/dL (6.3-8.2); Triglycerides 314 mg/dL (35-150)
[2023-11-15 10:13] LABS: Potassium 4.2 mmol/L (3.4-5.1)
[2023-11-15 10:42] LABS: Thyroid Stimulating Hormone 2.97 uIU/mL (0.47-4.68)
== END ==
LOC: LAB 08:23
PROVIDERS: PCP Family Medicine; Referring Provider Family Medicine; Visit Provider Family Medicine
DX: R74.8 Abnormal levels of other serum enzymes (principal); I10 Essential (primary) hypertension; E78.5 Hyperlipidemia, unspecified; E07.9 Disorder of thyroid, unspecified
CPT/HCPCS: 36415; 80053; 80061; 84443; 85025

== ENCOUNTER → 2023-11-16 15:05 | Outpatient (CLI) | payer MEDICARE, OTHER, SELFPAY ==
--- NOTE | 2023-11-16 15:06 | DI.US.S_ITS ---
PROCEDURE: US THYROID INDICATIONS: enlarged thyroid TECHNIQUE: Real-time scanning was performed of the thyroid gland, with image documentation. COMPARISON: None. FINDINGS: Right: Thyroid lobe measures 3.3 by 1.5 x 1.3 cm, and is homogeneous in echotexture. Left: Thyroid lobe measures 9.4 x 5.3 x 3.4 cm,. The entire left lobe of the thyroid is enlarged and heterogenous Isthmus: 0.8 cm thick. Nodule number: 1 Location: Right superior Size: 0.6 x 0.8 x 0.6 cm. Composition: Solid Echogenicity: Place 0 echo echoes Shape: wider than tall. Margins: Smooth Echogenic foci: None Total points: 3 ACR TI-RADS category: 3 Nodule number: 2 Location: Right mid Size: 0.7 x 0.4 x 0.6 cm. Composition: Solid Echogenicity: Hypoechoic Shape: Taller than wide Margins: Smooth Echogenic foci: Punctate Total points: 10 ACR TI-RADS category: 5. Highly suspicious. Nodule number: 3 Location: Right inferior Size: 1.3 x 1.0 x 0.8 cm. Composition: Solid Echogenicity: Hypoechoic Shape: wider than tall. Margins: Smooth Echogenic foci: None Total points: 4 ACR TI-RADS category: 4 IMPRESSION: Heterogenously enlarged left lower thyroid may reflect large pulmonary nodule replacing the entire lobe. Consider biopsy. Additional highly suspicious category 5 right mid thyroid subcentimeter nodule. Nevertheless, best practice guidelines suggest follow-up hand FNA when 1 cm or larger. ACR TI-RADS definitions and recommendations: TI-RADS 1 (benign): 0 points. FNA not needed. TI-RADS 2 (not suspicious): 2 points. FNA not needed. TI-RADS 3 (mildly suspicious): 3 points. * FNA if 2.5 cm or larger, follow up if 1.5 cm or larger (at 1, 3, and 5 years). TI-RADS 4 (moderately suspicious): 4-6 points. * FNA if 1.5 cm or larger, follow up if 1 cm or larger (at 1, 2, 3, and 5 years). TI-RADS 5 (highly suspicious): 7 points or more. * FNA if 1 cm or larger, follow up if 0.5 cm or larger (every year for 5 years). Approved by: Ganga Sanches M.D. on 11/16/2023 at 19:19
== END ==
PROVIDERS: PCP Family Medicine; Referring Provider Family Medicine; Visit Provider Family Medicine
DX: E07.9 Disorder of thyroid, unspecified (principal); E78.5 Hyperlipidemia, unspecified; I10 Essential (primary) hypertension; R74.8 Abnormal levels of other serum enzymes; E04.2 Nontoxic multinodular goiter
CPT/HCPCS: 76536

== ENCOUNTER → 2023-11-28 14:35 | Outpatient (CLI) | payer MEDICARE, OTHER, SELFPAY ==
--- NOTE | 2023-11-28 14:36 | DI.US.S_ITS ---
PROCEDURE: US ABDOMEN COMPLETE INDICATIONS: persistent elevated liver enzymes TECHNIQUE: Real-time scanning was performed of the abdominal and retroperitoneal organs, with image documentation. COMPARISON: None. FINDINGS: Liver: Hepatic parenchyma shows diffuse increased echogenicity consistent with fatty infiltration. Gallbladder: Cholelithiasis. No gallbladder wall thickening Biliary ducts: Intrahepatic bile ducts are non-dilated. Extrahepatic bile duct caliber measures 6 mm. Normal is 6-7 mm or less in diameter, or 10 mm or less post-cholecystectomy. Pancreas: Visualized portions of the pancreas are sonographically normal. Spleen: Spleen is normal in size and homogeneous in echotexture. Kidneys: Kidneys are normal in size and echotexture. Right kidney measures 10.0 cm long; left kidney measures 10.0 cm long. No hydronephrosis or nephrolithiasis. No solid masses. Aorta: Visualized aorta is normal in caliber at less than 3 cm. Iliacs: Proximal common iliac arteries are normal in caliber at less than 2.5 cm. IVC: Intrahepatic inferior vena cava is patent. Miscellaneous: No free abdominal fluid. IMPRESSION: Cholelithiasis without ultrasound evidence of acute cholecystitis. Hepatic fatty infiltration Approved by: Ganga Sanches M.D. on 11/28/2023 at 19:11
== END ==
PROVIDERS: PCP Family Medicine; Referring Provider Family Medicine; Visit Provider Family Medicine
DX: K76.0 Fatty (change of) liver, not elsewhere classified (principal); K80.20 Calculus of gallbladder without cholecystitis without obstruction; R74.8 Abnormal levels of other serum enzymes; C18.9 Malignant neoplasm of colon, unspecified; I10 Essential (primary) hypertension; E78.5 Hyperlipidemia, unspecified
CPT/HCPCS: 76700

== ENCOUNTER → 2023-12-01 07:59 | Outpatient (CLI) | payer MEDICARE, OTHER, SELFPAY ==
[2023-12-01 09:08] LABS: Alanine Aminotransferase 77 IU/L (<35); Albumin 4.1 g/dL (3.5-5.0); Albumin Globulin Ratio 1.2 (1.0-2.8); Alkaline Phosphatase 79 U/L (38-126); Aspartate Aminotransferase 113 IU/L (14-36); BUN Creatinine Ratio 22.5 (6-22); Bilirubin Total 0.8 mg/dL (0.2-1.3); Blood Urea Nitrogen 16 mg/dL (7-17); Calcium 9.7 mg/dL (8.4-10.2); Carbon Dioxide 27 mmol/L (22-32); Chloride 106 mmol/L (98-107); Estimated Glomerular Filt Rate > 60 mL/min (>60); Globulin 3.5 g/dL (1.7-4.1); Glucose 118 mg/dL (80-110); HEMOLYSIS < 15 (0-50); Potassium 4.1 mmol/L (3.4-5.1); Sodium 142 mmol/L (137-145); Total Protein 7.6 g/dL (6.3-8.2)
[2023-12-01 09:36] LABS: Hepatitis B Surface Antigen NEGATIVE s/c (NEGATIVE)
[2023-12-01 09:54] LABS: Hep C Virus Ab w/Reflex Quant NEGATIVE s/c (NEGATIVE)
[2023-12-02 08:32] LABS: Ceruloplasmin 25.9 mg/dL (19.0-39.0)
[2023-12-05 17:36] LABS: Smooth Muscle Antibody 7 Units (0-19)
[2023-12-06 17:36] LABS: ANA Screen, IFA Negative (.)
== END ==
PROVIDERS: PCP Family Medicine; Referring Provider Family Medicine; Visit Provider Family Medicine
DX: R74.8 Abnormal levels of other serum enzymes (principal); I10 Essential (primary) hypertension; E78.5 Hyperlipidemia, unspecified; C18.9 Malignant neoplasm of colon, unspecified
CPT/HCPCS: 36415; 80053; 82390; 86038; 86803; 87340

== ENCOUNTER → 2024-01-10 07:23 | Outpatient (CLI) | payer MEDICARE, OTHER, SELFPAY ==
--- NOTE | 2024-01-10 | PATH_ITS ---
Note [facility] Accession Number: [id number] TESTS RESULT FLAG UNITS REF RANGE LAB Clinician Provided Cytology Information No. of containers..01 Other (Miscellaneous) No. of containers..04 Previously Prepared Cytology Slide Source: LEFT THYROID NODULE VERSUS GLAND DIAGNOSIS: LEFT THYROID NODULE VERSUS GLAND NEGATIVE FOR MALIGNANT CELLS. B[place] CATEGORY II. SPECIMEN IS SCANTLY CELLULAR AND BARELY ADEQUATE3 AND CONSISTS OF FEW, BENIGN FOLLICULAR CELL GROUPS, SCANT COLLOID, AND BLOOD. THIS PATTERN IS MOST CONSISTENT WITH A BENIGN FOLLICULAR NODULE. PLEASE CORRELATE WITH CLINICAL AND IMAGING FINDINGS. Pathologist ICD10: 01 E04.1 Signed out by: Padmini Wong MD, Pathologist NPI- [id number] Performed by: Adithya Foley, Component Assembler ([facility]) Gross description: 30 CC, RED, CLOUDY RECIEVED: IN CYTOLYT WITH 7 ALCOHOL FIXED AND 7 QUICK STAINED SLIDES ALSO 1 RNA VIAL WILL ON 07-21-2025.VO /VDU 01/11/2024 0633 Local FLAG LEGEND: L-Low Normal,H-High Normal,LL-Alert Low,HH-Alert High <-Panic Low,>-Panic High,A-Abnormal,AA-Critical Abnormal Performed at: 01 =[facility] [address], [place] [address] Javier Pritchard MD, Performed at: 01 [facility] [address] [id number] MD Javier Pritchard MD Phone: [phone]
--- NOTE | 2024-01-10 07:24 | DI.US.S_ITS ---
PROCEDURE: US FINE NEEDLE ASPIRATION INDICATIONS: LEFT THYROID NODULE VERSUS GLAND ASPIRATION TECHNIQUE: The indications, alternatives, benefits, risks, and complications of the procedure were explained to the patient. Written informed consent was obtained and placed in the chart. The area of interest was examined sonographically and a site was chosen for ultrasound guided percutaneous sampling. The skin was prepared and draped in the usual fashion, and anesthetized with 1% lidocaine infiltrated from the skin down to the lesion. Multiple passes were then performed, with contents emptied into an appropriate pathology specimen container. A bandage was applied to the area of access at completion of the study. COMPARISON: [facility], , US THYROID, 11/16/2023, 15:21. FINDINGS: Location(s) of lesion(s) sampled: Left mid thyroid. Small area of calcifications targeted. The left thyroid gland is markedly enlarged compared to the right. The left gland is diffusely heterogeneous with cystic change which is asymmetric compared to the right. [place]: 25 gauge hypodermic needles x6. 22 gauge hypodermic needles x1. Number of passes: 7 Medications: 1% lidocaine for local anaesthesia. Complications: None. Procedure was well tolerated. IMPRESSION: Successful ultrasound-guided left thyroid fine needle aspiration, with cytology results pending. Dictated by: Bladimir Polk M.D. on 01/10/2024 at 9:15 Approved by: Bladimir Polk M.D. on 01/10/2024 at 9:17
== END ==
LOC: US 07:24
PROVIDERS: PCP Family Medicine; Referring Provider Family Medicine; Visit Provider Family Medicine
DX: E04.1 Nontoxic single thyroid nodule (principal)
CPT/HCPCS: 10005

== ENCOUNTER → 2024-03-27 07:37 | Outpatient (CLI) | payer MEDICARE, OTHER, SELFPAY ==
[2024-03-27 08:22] LABS: Add Manual Diff / Slide Review NO; Basophils Absolute Auto 100 /uL (0-100); Basophils Percent Auto 0.8 % (0-2); Eosinophils Absolute Auto 100 /uL (0-450); Eosinophils Percent Auto 2.1 % (2-4); Hematocrit 50.5 % (36-46); Hemoglobin 17.1 g/dL (12.0-16.0); Lymphocytes Absolute Auto 2200 /uL (1100-4500); Lymphocytes Percent Auto 34.1 % (25-40); Mean Corpuscular HGB Conc 33.9 % (30-36); Mean Corpuscular Hemoglobin 32.1 PG (26-34); Mean Corpuscular Volume 94.6 fL (80-100); Monocytes Absolute Auto 600 /uL (0-900); Monocytes Percent Auto 9.7 % (3-14); Neutrophils Absolute Auto 3500 /uL (1500-7000); Neutrophils Percent Auto 53.3 % (50-75); Platelet Count 158 X10^3/uL (150-400); Red Blood Cell Count 5.33 X10^6/uL (4.0-5.2); Red Cell Distribution Width 12.9 % (11.6-14.8); White Blood Cell Count 6.5 X10^3/uL (4.5-11.0)
[2024-03-27 08:35] LABS: Hemoglobin A1C% w Est Avg Glu 5.1 % (4.0-6.0)
[2024-03-27 08:45] LABS: Alanine Aminotransferase 64 IU/L (<35); Albumin 4.6 g/dL (3.5-5.0); Albumin Globulin Ratio 1.4 (1.0-2.8); Alkaline Phosphatase 83 U/L (38-126); Aspartate Aminotransferase 83 IU/L (14-36); BUN Creatinine Ratio 18.5 (6-22); Bilirubin Total 0.8 mg/dL (0.2-1.3); Blood Urea Nitrogen 15 mg/dL (7-17); Calcium 10.4 mg/dL (8.4-10.2); Carbon Dioxide 35 mmol/L (22-32); Chloride 107 mmol/L (98-107); Cholesterol 283 mg/dL (140-199); Estimated Glomerular Filt Rate > 60 mL/min (>60); Globulin 3.2 g/dL (1.7-4.1); Glucose 108 mg/dL (80-110); HDL Cholesterol 54 mg/dL (40-60); HEMOLYSIS < 15 (0-50); LDL Cholesterol Calculated 162 mg/dL (<100); Potassium 4.8 mmol/L (3.4-5.1); Sodium 144 mmol/L (137-145); Total Protein 7.8 g/dL (6.3-8.2); Triglycerides 334 mg/dL (35-150)
[2024-03-28 03:40] LABS: Apolipoprotein B 159 mg/dL (<90)
[2024-04-04 16:09] LABS: Calcium 10.8 mg/dL (8.7-10.3); Parathyroid Hormone, Intact 46 pg/mL (15-65)
== END ==
PROVIDERS: PCP Family Medicine; Referring Provider Family Medicine; Visit Provider Family Medicine
DX: K80.20 Calculus of gallbladder without cholecystitis without obstruction (principal); K76.0 Fatty (change of) liver, not elsewhere classified; I10 Essential (primary) hypertension; R74.8 Abnormal levels of other serum enzymes; E78.5 Hyperlipidemia, unspecified
CPT/HCPCS: 36415; 80053; 80061; 82172; 82310; 83036; 83970; 85025

== ENCOUNTER 2024-11-04 11:23 | Emergency (ER) | payer MEDICARE, OTHER, SELFPAY ==
[2024-11-04 11:50] VITALS: BP 166/80; PULSE 82; RESP 16; TEMP 36.9; O2SAT 95; BMI 42.5
--- NOTE | 2024-11-04 11:55 | DI.RAD.S_ITS ---
PROCEDURE: XR FOOT LT MIN 3V INDICATIONS: hit left 4th and 5th toes against recliner TECHNIQUE: 3 views of the foot were acquired. COMPARISON: [facility], CR, XR FOOT LT MIN 3V, 02/05/2023, 8:39. FINDINGS: Bones: Probable very subtle crack involving the base of the shaft of the proximal phalanx of the small toe. No 4th toe fracture is identified. No suspicious bony lesions. Soft tissues: No tibiotalar joint effusion. Achilles tendon appears normal. IMPRESSION: Apparent very subtle crack involving the base of the shaft of the proximal phalanx of the small toe. Dictated by: Kang Villegas M.D. on 11/04/2024 at 13:22 Approved by: Kang Villegas M.D. on 11/04/2024 at 13:23
--- NOTE | 2024-11-04 12:24 | ED.LOWEXIN ---
HPI - Extremity Injury (Lower) <Gabby Schumacher PA-C - Last Filed: 11/04/24 13:52> General Chief Complaint: Extremity Injury, Lower Stated Complaint: Jammed toe Time Seen by Provider: 11/04/24 12:04 Source: patient Mode of arrival: Ambulatory History of Present Illness HPI Narrative: 69-year-old female presents to the ED status post a left pinky toe injury sustained last night. Patient states that she was playing with her dog, when she accidentally jammed her pinky toe and 4th toe of the left foot against a recliner. Patient is complaining of pain, bruising. Patient does have a walking boot from a prior injury. No numbness, tingling, weakness. Patient is able to bear weight and walk when she wears the boot. Related Data Previous Rx's Medication Instructions Recorded trazodone 50 mg tablet 50 mg PO BEDTIME PRN insomnia #60 06/28/22 tabs sumatriptan succinate 100 mg tablet 100 mg PO Q2-4H PRN Headache #60 06/20/24 tabs Allergies Allergy/AdvReac Type Severity Reaction Status Date / Time No Known Drug Allergies Allergy Verified 04/10/24 11:26 Review of Systems <Gabby Schumacher PA-C - Last Filed: 11/04/24 13:52> Constitutional Constitutional: Denies chills, Denies fatigue, Denies fever(s), Denies frequent falls, Denies lethargy and Denies weakness Eyes Eyes: Denies change in vision, Denies eye discharge, Denies irritation and Denies loss of vision ENT Ears, Nose, Mouth, and Throat: Denies change in voice, Denies dizziness, Denies neck pain, Denies sore throat and Denies throat swelling Cardiovascular Cardiovascular: Denies chest pain, Denies irregular heart rhythm, Denies lightheadedness, Denies palpitations, Denies dyspnea, Denies dyspnea on exertion and Denies orthopnea Respiratory Respiratory: Denies cough, Denies dyspnea, Denies dyspnea on exertion and Denies wheezing Gastrointestinal Gastrointestinal: Denies abdominal pain, Denies change in bowel habits, Denies diarrhea, Denies nausea and Denies vomiting Musculoskeletal Musculoskeletal: Denies neck pain and Denies numbness Comments: Left pinky toe pain, bruising Integumentary/Breasts Skin/Breast: Denies pruritus, Denies erythema, Denies rash and Denies wounds Neurologic Neurologic: Denies behavioral changes, Denies confusion, Denies dizziness, Denies frequent falls, Denies loss of vision, Denies numbness and Denies weakness Psychiatric Psychiatric: Denies anxiety, Denies behavioral changes, Denies confusion, Denies depression, Denies homicidal ideation and Denies suicidal ideation Endocrine Endocrine: Denies fatigue, Denies flushing and Denies palpitations Hematologic/Lymphatic Hematologic/Lymphatic: Denies easy bruising Allergic/Immunologic Allergic/Immunologic: Denies urticaria, Denies throat swelling and Denies wheezing Patient History <Gabby Schumacher PA-C - Last Filed: 11/04/24 13:52> Medical History (Updated 11/04/24 @ 13:40 by Gabby Schumacher PA-C) Elevated liver enzymes Anxiety HLD (hyperlipidemia) Osteoarthritis SUZIE on CPAP HTN (hypertension) Headache Depression Enlarged thyroid (~2007) Colon cancer (~2006) Patient denies medical problems Surgical History History of hemorrhoidectomy History of colonoscopy (~2016) History of ear surgery Hx of tonsillectomy Social History household members: spouse Smoking Status: Never smoker alcohol intake: current Smoking Status: Never smoker alcohol intake frequency: holidays/special occasions only Exam <Gabby Schumacher PA-C - Last Filed: 11/04/24 13:52> Narrative Exam Narrative: Const General:?cooperative, healthy appearing and comfortable [facility] Head:?normal to inspection Ears:?hearing grossly normal bilaterally Nose:?external nose normal Face and sinus:?normal facial exam and sinuses nontender Mouth:?oral mucosae normal Throat:?posterior oropharynx normal Eyes General:?appearance normal, both eyes and all related structures Neck Neck:?normal visual inspection and no lymphadenopathy noted Resp Effort & Inspection:?normal respiratory effort Auscultation:?clear to auscultation bilaterally Cardio Rate:?regular rate Rhythm:?regular rhythm Musculoskeletal There is tenderness to palpation, swelling, bruising to the left pinky toe. Sensation is intact. Neurovascularly intact. Neuro General:?patient alert, patient awake and patient oriented x3 Initial Vital Signs Initial Vital Signs: Vital Signs Temperature 98.4 F 11/04/24 11:50 Pulse Rate 82 11/04/24 11:50 Respiratory Rate 16 11/04/24 11:50 Blood Pressure 166/80 H 11/04/24 11:50 Pulse Oximetry 95 11/04/24 11:50 Oxygen Delivery Method Room Air 11/04/24 11:50 <Peg Mcclelland DO - Last Filed: 11/06/24 13:35> Initial Vital Signs Initial Vital Signs: Vital Signs Temperature 98.4 F 11/04/24 11:50 Pulse Rate 82 11/04/24 11:50 Respiratory Rate 16 11/04/24 11:50 Blood Pressure 166/80 H 11/04/24 11:50 Pulse Oximetry 95 11/04/24 11:50 Oxygen Delivery Method Room Air 11/04/24 11:50 Course <Gabby Schumacher PA-C - Last Filed: 11/04/24 13:52> Orders Ordered: ED Orders 11/04/24 11:55 XR foot LT min 3V Stat Vital Signs Vital signs: Vital Signs - 8 hr 11/04/24 11:50 Temperature 98.4 F Pulse Rate 82 Respiratory Rate 16 Blood Pressure 166/80 H Pulse Oximetry 95 Oxygen Delivery Method Room Air <DO Paz Garcia Last Filed: 11/06/24 13:35> Orders Ordered: ED Orders 11/04/24 11:55 XR foot LT min 3V Stat Vital Signs Vital signs: Vital Signs - 8 hr 11/04/24 11:50 Temperature 98.4 F Pulse Rate 82 Respiratory Rate 16 Blood Pressure 166/80 H Pulse Oximetry 95 Oxygen Delivery Method Room Air MDM - Extremity Injury (Lower) <LIZ Inman Last Filed: 11/04/24 13:52> MDM Narrative Medical decision making narrative: 69-year-old female presents to the ED status post a left pinky toe injury sustained last night. Obtained an x-ray of the foot which shows an apparent very subtle crack involving the base of the shaft of the proximal phalanx of the small toe. No 4th toe fracture is identified. Discussed findings with patient. Pinky anjel-taped to the 4th toe. Patient advised to continue wearing her boot. Recommend Tylenol, ibuprofen for pain control. Recommend follow-up with PCP as soon as possible. ED return precautions discussed with patient. Patient verbalized understanding. Medical records reviewed: Yes Discharge Plan Departure Patient Disposition: Home Clinical Impression: Fracture of toe Qualifiers: Encounter type: initial encounter Toe: lesser toe Fracture type: closed Phalanx: proximal Fracture alignment: nondisplaced Laterality: left Qualified Code(s): S92.515A - Nondisplaced fracture of proximal phalanx of left lesser toe(s), initial encounter for closed fracture Instructions: DI for Toe Fracture Activity Restrictions/Additional Instructions: You were evaluated in the ED today for a foot injury. You do have a small crack on your left pinky toe. Please keep the pinky toe anjel-taped like we have done in the emergency department. You may continue to wear your walking boot aid healing. You may take Tylenol, ibuprofen for pain relief. Please follow-up with your PCP as soon as possible. Return to the ED if you have any worsening symptoms, numbness, tingling, weakness. Prescriptions: No Action sumatriptan succinate 100 mg tablet 100 mg PO Q2-4H PRN (Reason: Headache) Qty: 60 0RF trazodone 50 mg tablet 50 mg PO BEDTIME PRN (Reason: insomnia) Qty: 60 0RF Referrals: Feliz Owens MD [Primary Care Provider] - Stand Alone Forms: Patient Portal/API/Survey ED Sign-out <Peg Mcclelland DO - Last Filed: 11/06/24 13:35> Cosign ED Attending Jaycob Attestation: I was available for consultation.
[2024-11-04 13:55] VITALS: BP 130/61; PULSE 69; RESP 14; O2SAT 98
== END 2024-11-04 13:55 | disposition home or self-care (01) ==
PROVIDERS: Emergency Provider Student in an Organized Health Care Education/Training Program; PCP Family Medicine
DX: S92.515A Nondisplaced fracture of proximal phalanx of left lesser toe(s), initial encounter for closed fracture (principal); W22.8XXA Striking against or struck by other objects, initial encounter
CPT/HCPCS: 73630; 99281; 99283

== ENCOUNTER → 2024-11-12 07:33 | Outpatient (CLI) | payer MEDICARE, OTHER, SELFPAY ==
[2024-11-12 08:54] LABS: Cholesterol 288 mg/dL (140-199); HDL Cholesterol 40 mg/dL (40-60); LDL Cholesterol Calculated 189 mg/dL (<100); Triglycerides 297 mg/dL (35-150)
== END ==
PROVIDERS: PCP Family Medicine; Referring Provider Internal Medicine; Visit Provider Internal Medicine
DX: E78.5 Hyperlipidemia, unspecified (principal)
CPT/HCPCS: 36415; 80061

== ENCOUNTER → 2025-01-23 12:06 | Outpatient (CLI) | payer MEDICARE, OTHER, SELFPAY ==
--- NOTE | 2025-01-23 12:10 | DI.ECHO.S_ITS ---
[facility] : : [address] : : [place] : : [id number] : : Phone: [phone] Echocardiogram Report + + :Name: JAIMEE GIFFORD Study Date: 01/23/2025 Height: 63 in : :[facility] ReadingLocation: Weight: 240 lb : : Gender: Female BSA: 2.1 m2 : :: 1955 Age: 69 yrs BP: 170/83 mmHg: :Reason For Study: ABNORMAL EKG : :Ordering Physician: HOLLI ASTUDILLO Performed By: Rickey Bernardo : :Referring: HOLLI ASTUDILLO : + + Interpretation Summary TDS - MORBID OBESITY, POOR CARDIAC POSITION 1. The left ventricular contractility is normal. Estimate ejection fraction is greater than 55% with no segmental wall motion abnormalities. Mild concentric LVH. Unable to comment on diastolic function. 2. The right ventricle contractility is normal. Prominent trabeculation noted in the right ventricular apex. 3. All cardiac chambers are of normal size. 4. No significant valvular abnormalities noted. 5. No obvious intracardiac shunts. 6. No intracardiac masses nor thrombi. 7. No hemodynamically significant pericardial effusion. 8. Low right-sided filling pressures. Conclusion: Normal biventricular systolic function with no significant valvular abnormalities. Prominent trabeculation of the right ventricular apex without obvious left ventricular involvement. This is of unclear significance. Procedure: A two-dimensional transthoracic echocardiogram with color flow and Doppler was performed. A contrast injection of Definity was performed to improve assessment of LV function. The study quality was technically difficult. The study quality was technically limited. There is no prior echocardiogram noted for this patient. The patient was in normal sinus rhythm during the exam. Left Ventricle: The left ventricle is normal in size. Left ventricular wall thickness is mildly increased. There is no ventricular septal defect visualized. The ejection fraction is estimated to be 70-75%. Right Ventricle: The right ventricle is normal in size and function. Atria: The left atrial size is normal. Right atrial size is normal. There is no Doppler evidence for an atrial septal defect. Mitral Valve: The mitral valve is grossly normal. There is trace mitral regurgitation. Aortic Valve: The aortic valve is not well visualized. No aortic regurgitation is present. Tricuspid Valve: The tricuspid valve is not well visualized. There is trace tricuspid regurgitation. The right ventricular systolic pressure is estimated to be at least 38 mmHg based on an estimated right atrial pressure of 3 mm Hg. Pulmonic Valve: The pulmonic valve is not well visualized. There is no pulmonic valvular regurgitation. Great Vessels: The aortic root is normal size. The dimensions of the ascending aorta are normal. The pulmonary artery is normal size. The IVC is of normal diameter and collapses greater than 50% with a sniff. This suggests a low right atrial pressure of 3 mm Hg. Pericardium/ Pleura There is no pericardial effusion. There is no pleural effusion. MMode/2D Measurements & Calculations LVIDd: 5.0 cm LVOT diam: 1.9 cm LVIDs: 3.2 cm Ao root diam: 3.0 cm FS: 34.8 % asc Aorta Diam: 3.3 cm EPSS: 0.62 cm IVSd: 1.2 cm LVPWd: 1.2 cm LV freedman. diameter/BSA (cm/m^2): 2.4 LV sys. diameter/BSA (cm/m^2): 1.6 LA A2 area: 17.5 cm2 RA long axis: 4.3 cm LA A4 area: 18.4 cm2 RA area: 14.4 cm2 LA length (vol): 5.5 cm RA vol: 41.4 ml LA vol: 49.2 ml RA : 19.8 ml/m2 LA vol index: 23.6 ml/m2 IVC diam: 1.7 cm RVD1 (basal): 3.9 cm RVD2 (mid): 3.3 cm TAPSE: 2.2 cm Doppler Measurements & Calculations Ao V2 max: 158.9 cm/sec LVOT Max Jayson: 106.9 cm/sec Ao V2 mean: 118.1 cm/sec LV V1 max P.6 mmHg Ao max P.1 mmHg LV V1 VTI: 23.5 cm Ao mean P.0 mmHg WICHO(I,D): 1.9 cm2 Ao V2 VTI: 35.1 cm WICHO(V,D): 1.9 cm2 sev ratio: 0.67 WICHO indexed to BSA (cm^2/m^2): 0.92 MV E max jayson: 89.4 cm/sec TR max jayson: 296.6 cm/sec MV A max jayson: 60.4 cm/sec TR max P.2 mmHg MV E/A: 1.5 PA V2 max: 105.6 cm/sec Med Peak E' Jayson: 8.8 cm/sec PA V2 mean: 79.1 cm/sec E/E' med: 10.2 PA mean P.7 mmHg Lat Peak E' Jayson: 9.1 cm/sec PA pr(Accel): 27.6 mmHg E/E' lat: 9.8 E/e' average: 10.0 MV dec time: 0.18 sec SV(OT): 67.7 ml Reading Physician:KRISTA
--- NOTE | 2025-01-23 12:11 | DI.NM.S_ITS ---
PROCEDURE: NM MONY PERF SPECT R&S PHARM Rest and pharmacological stress myocardial perfusion SPECT with gated imaging and ejection fraction RADIOPHARMACEUTICAL: 25 mCi Tc-99m tetrafosmin IV at rest and 25.6 mCi Tc-99m tetrafosmin IV at peak effect of pharmacological stress. Ejy-bnz-[id number] was performed. INDICATIONS: ABNORMAL EKG PQRS ATTESTATIONS: Measure 322 - Is this imaging test primarily performed on a low-risk surgery patient for preoperative evaluation within 30 days preceding their low-risk non-cardiac surgery? Low-risk surgery is defined as cardiac or myocardial infarction less than 1%, including (but not limited to) endoscopic procedures, superficial procedures, cataract surgery, and excisional breast surgery: Answer: No Measure 323 - Is this imaging test performed primarily for the monitoring of an asymptomatic patient who had percutaneous coronary intervention on the visit date or within 2 years of the visit date? Answer: No Measure 324 - Is this imaging test performed primarily for the initial detection and risk assessment on an asymptomatic, low coronary heart disease patient? Low CHD risk definition = clinicians should consider the maximum number of available patient factors used to estimate risk based on [employer]ent (ATP III criteria), typically age, gender, diabetes, smoking status, and use of blood pressure medication, and integrate age appropriate estimates for missing elements, such as LDL or standard blood pressure. Answer: No TECHNIQUE: Radiopharmaceutical was injected at peak stress test, and also at rest. SPECT images were obtained. SPECT myocardial perfusion images were displayed in short axis, horizontal long axis, and vertical long axis views. Gated images were reviewed using [email or web address] software. COMPARISON: None. CARDIAC STRESS: A pharmacologic stress test was performed under the supervision of an attending staff, using an infusion of 0.4 mg of Lexiscan. Hemodynamic data: There is normal blood pressure and heart rate response to pharmacologic stress. Symptoms: The patient denied anginal chest pain. Aminophylline: No EKG: No diagnostic changes of ischemia; no ectopy. FINDINGS: Raw data: There is good myocardial uptake of radiotracer. No significant motion artifacts. Yxqz-zr-oneae ratio is 0.47 (normal is less than 0.38 for tetrafosmin tracer). Left ventricle function: Gated images demonstrate normal left ventricular wall thickening. No segmental wall motion abnormalities. No transient ischemic dilation; TID is 0.92 (normal less than 1.3). Left ventricle resting end diastolic volume is 96 mL. Left ventricle stress ejection fraction is 79%; normal range is above 45%. Myocardial perfusion: Resting images had slight hypoperfusion in the apical segment. No other perfusion defects noted. Stress images had no perfusion defects. Prone images were not obtained. IMPRESSION: 1. Negative Lexiscan myocardial perfusion scan for ischemia and infarction. Dictated by: Blake Astudillo M.D. on 01/31/2025 at 16:49 Approved by: Blake Astudillo M.D. on 01/31/2025 at 16:50
== END ==
PROVIDERS: PCP Family Medicine; Referring Provider Family Medicine; Visit Provider Internal Medicine
DX: R94.31 Abnormal electrocardiogram [ECG] [EKG] (principal); R07.9 Chest pain, unspecified
CPT/HCPCS: C8929; Q9957

== ENCOUNTER → 2025-01-28 13:42 | Outpatient (CLI) | payer MEDICARE, OTHER, SELFPAY ==
[2025-01-28 14:59] LABS: Alanine Aminotransferase 41 IU/L (<35); Albumin 4.3 g/dL (3.5-5.0); Albumin Globulin Ratio 1.5 (1.0-2.8); Alkaline Phosphatase 74 U/L (38-126); Aspartate Aminotransferase 59 IU/L (14-36); BUN Creatinine Ratio 25.3 (6-22); Bilirubin Total 0.7 mg/dL (0.2-1.3); Blood Urea Nitrogen 20 mg/dL (7-17); Calcium 9.9 mg/dL (8.4-10.2); Carbon Dioxide 26 mmol/L (22-32); Chloride 107 mmol/L (98-107); Estimated Glomerular Filt Rate > 60 mL/min (>60); Globulin 2.8 g/dL (1.7-4.1); Glucose 83 mg/dL (70-99); HEMOLYSIS < 15 (0-50); Potassium 4.7 mmol/L (3.4-5.1); Sodium 140 mmol/L (137-145); Total Protein 7.1 g/dL (6.3-8.2)
[2025-01-30 08:36] LABS: Calcium 10.1 mg/dL (8.7-10.3); Parathyroid Hormone, Intact 62 pg/mL (15-65)
== END ==
PROVIDERS: PCP Family Medicine; Referring Provider Family Medicine; Visit Provider Family Medicine
DX: R74.8 Abnormal levels of other serum enzymes (principal); E78.5 Hyperlipidemia, unspecified; I10 Essential (primary) hypertension
CPT/HCPCS: 36415; 80053; 82310; 83970

== ENCOUNTER → 2025-06-17 07:24 | Outpatient (CLI) | payer MEDICARE, OTHER, SELFPAY ==
[2025-06-17 08:00] LABS: Add Manual Diff / Slide Review NO; Hematocrit 47.4 % (36-46); Hemoglobin 16.4 g/dL (12.0-16.0); Lymphocytes Absolute Auto 2400 /uL (1100-4500); Mean Corpuscular HGB Conc 34.7 % (30-36); Mean Corpuscular Hemoglobin 32.9 PG (26-34); Mean Corpuscular Volume 95.0 fL (80-100); Platelet Count 150 X10^3/uL (150-400)
[2025-06-17 08:10] LABS: Alanine Aminotransferase 49 IU/L (<35); Albumin 4.2 g/dL (3.5-5.0); Albumin Globulin Ratio 1.6 (1.0-2.8); Alkaline Phosphatase 77 U/L (38-126); Blood Urea Nitrogen 19 mg/dL (7-17); Calcium 10.0 mg/dL (8.4-10.2); Carbon Dioxide 30 mmol/L (22-32); Chloride 104 mmol/L (98-107); Cholesterol 176 mg/dL (140-199); Creatine Kinase 42 U/L (30-135); Estimated Glomerular Filt Rate > 60 mL/min (>60); Globulin 2.7 g/dL (1.7-4.1); Glucose 112 mg/dL (70-99); HDL Cholesterol 53 mg/dL (40-60); HEMOLYSIS < 15 (0-50); Potassium 5.2 mmol/L (3.4-5.1); Sodium 142 mmol/L (137-145); Total Protein 6.9 g/dL (6.3-8.2); Triglycerides 191 mg/dL (35-150)
[2025-06-17 08:41] LABS: TSH w/ Reflex to FT4 2.71 uIU/mL (0.47-4.68)
== END ==
PROVIDERS: PCP Family Medicine; Referring Provider Family Medicine; Visit Provider Internal Medicine
DX: E78.5 Hyperlipidemia, unspecified (principal); R74.8 Abnormal levels of other serum enzymes; I10 Essential (primary) hypertension; C18.9 Malignant neoplasm of colon, unspecified; Z00.00 Encounter for general adult medical examination without abnormal findings
CPT/HCPCS: 36415; 80053; 80061; 80076; 82172; 82550; 84443; 85025

== ENCOUNTER → 2025-07-15 12:19 | Outpatient (CLI) | payer MEDICARE, OTHER, SELFPAY ==
--- NOTE | 2025-07-15 12:20 | DI.ECHO.S_ITS ---
[facility] : : [address] : : [place] : : [id number] : : Phone: [phone] Echocardiogram Report + + :Name: JAIMEE GIFFORD Study Date: 07/15/2025 Height: 63 in : :[facility] ReadingLocation: Weight: 250 lb : : Gender: Female BSA: 2.1 m2 : :: 1955 Age: 70 yrs BP: 144/79 mmHg: :Reason For Study: ABNORMAL EKG : :Ordering Physician: HOLLI ASTUDILLO MDPerformed By: Lyla Stewart : :Referring: HOLLI ASTUDILLO : + + Interpretation Summary - The left ventricular contractility is normal. Estimated ejection fraction greater than 55% with no segmental wall motion abnormalities. No LVH. Normal diastolic function. - The right ventricular contractility is normal. Prominent trabeculation noted in the right ventricular apex. - All cardiac chambers are normal size. - No significant valvular abnormalities. - No obvious intracardiac shunts. - No obvious intracardiac masses nor thrombi. - No hemodynamically significant pericardial effusion. - Low right-sided filling pressures. Conclusion: Normal biventricular function with no significant valvular abnormalities. The prominent trabeculation in the right ventricular apex is still present. Procedure: A two-dimensional transthoracic echocardiogram with color flow and Doppler was performed. The study quality was technically difficult. Comparison is made with the echocardiogram of 01/23/2025. The patient was in sinus rhythm with heart rates between 59-70 bpm during the exam. Left Ventricle: The left ventricle is normal in size and wall thickness. The ejection fraction is estimated to be 55-60%. Normal diastolic function. Right Ventricle: The right ventricle is normal in size and function. Atria: The left atrial size is normal. Right atrial size is normal. There is no Doppler evidence for an interatrial shunt. Mitral Valve: The mitral valve is grossly normal. There is trace mitral regurgitation. Aortic Valve: The aortic valve is trileaflet. The aortic valve opens well. There is no aortic valve stenosis. No aortic regurgitation is present. Tricuspid Valve: The tricuspid valve is not well visualized, but is grossly normal. There is trace tricuspid regurgitation. The right ventricular systolic pressure is estimated to be at least 28 mmHg based on an estimated right atrial pressure of 3 mm Hg. Pulmonic Valve: The pulmonic valve is not well seen, but is grossly normal. There is no pulmonic valvular regurgitation. Great Vessels: The aortic root is normal size. The dimensions of the ascending aorta are normal. The IVC is of normal diameter and collapses greater than 50% with a sniff. This suggests a low right atrial pressure of 3 mm Hg. Pericardium/ Pleura There is no pericardial effusion. There is an anterior echo-free space consistent with a fat pad. There is no pleural effusion. MMode/2D Measurements & Calculations LVIDd: 4.9 cm LVOT diam: 2.0 cm LVIDs: 3.1 cm Ao root diam: 2.7 cm FS: 37.1 % asc Aorta Diam: 3.3 cm IVSd: 0.89 cm Ao Arch Diam (Prox Trans): 3.0 cm LVPWd: 0.85 cm LV freedman. diameter/BSA (cm/m^2): 2.3 LV sys. diameter/BSA (cm/m^2): 1.5 LA A2 area: 15.3 cm2 RA long axis: 5.0 cm LA A4 area: 16.2 cm2 RA area: 14.9 cm2 LA length (vol): 5.5 cm RA vol: 37.8 ml LA vol: 38.8 ml RA : 17.8 ml/m2 LA vol index: 18.3 ml/m2 IVC diam: 1.9 cm RVD1 (basal): 3.6 cm RVD2 (mid): 2.9 cm TAPSE: 1.6 cm Doppler Measurements & Calculations Ao V2 max: 166.8 cm/sec LVOT Max Jayson: 101.5 cm/sec Ao V2 mean: 113.8 cm/sec LV V1 max P.1 mmHg Ao max P.1 mmHg LV V1 VTI: 22.1 cm Ao mean P.7 mmHg WICHO(I,D): 1.9 cm2 Ao V2 VTI: 34.4 cm WICHO(V,D): 1.8 cm2 sev ratio: 0.64 WICHO indexed to BSA (cm^2/m^2): 0.92 MV E max jayson: 83.5 cm/sec TR max jayson: 250.2 cm/sec MV A max jayson: 79.0 cm/sec TR max P.0 mmHg MV E/A: 1.1 PA V2 max: 107.0 cm/sec Med Peak E' Jayson: 7.8 cm/sec PA V2 mean: 73.6 cm/sec E/E' med: 10.7 PA mean P.4 mmHg Lat Peak E' Jayson: 10.6 cm/sec PA pr(Accel): 20.8 mmHg E/E' lat: 7.9 E/e' average: 9.3 MV dec time: 0.23 sec [facility] 67.0 ml Reading Physician:KRISTA
== END ==
LOC: ECHO 12:20
PROVIDERS: PCP Family Medicine; Referring Provider Internal Medicine; Visit Provider Internal Medicine
DX: R94.31 Abnormal electrocardiogram [ECG] [EKG] (principal)
CPT/HCPCS: 93306

== ENCOUNTER → 2025-08-27 15:01 | Outpatient (CLI) | payer MEDICARE, OTHER, SELFPAY ==
--- NOTE | 2025-08-27 15:02 | DI.MG.S_ITS ---
MM screening mammo BI: 08/27/2025. BI-RADS: 1 CLINICAL: 70-year old female for bilateral screening mammogram. Tyrer-Cuzick lifetime risk of 4.4%. No personal or first-degree family history of breast cancer. PRIOR EXAMS: No prior examinations available. MAMMOGRAPHY TECHNIQUE: 2D and 3D (tomosynthesis) digital mammographic views obtained, with additional images as needed for full coverage. Current study was also evaluated with a Computer Aided Detection (CAD) system. DENSITY B. There are scattered areas of fibroglandular density. MAMMOGRAPHY FINDINGS Bilateral: No suspicious mass, asymmetry, microcalcification, or other abnormality seen. IMPRESSION: * No evidence of malignancy. RECOMMENDATIONS Bilateral * Annual screening mammography. OVERALL ASSESSMENT CATEGORY BI-RADS-1: Negative. The [employer] recommends annual screening mammography beginning at age 40 for women with average risk of breast cancer. ELECTRONICALLY SIGNED: Branden Ruano M.D. on 08/28/2025 at 07:17:46 AM PT Interpreting Station ID: [id number]
== END ==
LOC: MAMMO 15:02
PROVIDERS: PCP Family Medicine; Referring Provider Family Medicine; Visit Provider Family Medicine
DX: Z12.31 Encounter for screening mammogram for malignant neoplasm of breast (principal)
CPT/HCPCS: 77063; 77067